=== PATIENT | male | born 1955 | race American Indian/Alaskan Native ===

== ENCOUNTER 2017-10-23 16:44 | Inpatient (IN) | payer MEDICAID ==
--- NOTE | 2017-10-23 17:42 | C.PDOC ---
Time Seen by Provider: 10/23/17 17:11 Chief Complaint (Nursing): Shortness Of Breath Past Medical History Vital Signs: Last Vital Signs Temp 98.8 F 10/23/17 17:00 Pulse 86 10/23/17 17:00 Resp 18 10/23/17 17:15 BP 128/73 10/23/17 17:00 Pulse Ox 100 10/23/17 17:15 - Medical History PMH: Anxiety, HTN, Hypercholesterolemia, End Stage Renal Disease, Chronic Kidney Disease - Social History Hx Alcohol Use: No Hx Substance Use: No ED Course And Treatment ECG: Interpreted By Me ECG Rhythm: Sinus Rhythm Rate From EC O2 Sat by Pulse Oximetry: 100 Pulse Ox Interpretation: Normal Progress - Data Reviewed Data Reviewed: Lab, Diagnostic imaging, EKG, Old records Disposition - Disposition
--- NOTE | 2017-10-23 17:51 | C.PDOC ---
History Of Present Illness POOR HX SOB YESTERDAY, DENIES COUGH, CP FEVER OR TIGHTNESS. ALST DIALYSIS TWO DAYS AGO. EXAM. NON TOXIC NO ACUTE FINDINGS POOR EFFORT Time Seen by Provider: 10/23/17 17:11 Chief Complaint (Nursing): Shortness Of Breath History/Exam Limitations: clinical condition Past Medical History Reviewed: Historical Data, Nursing Documentation, Vital Signs Vital Signs: Last Vital Signs Temp 98.8 F 10/23/17 17:00 Pulse 86 10/23/17 17:00 Resp 18 10/23/17 17:15 BP 128/73 10/23/17 17:00 Pulse Ox 100 10/23/17 18:00 - Medical History PMH: Anxiety, HTN, Hypercholesterolemia, End Stage Renal Disease, Chronic Kidney Disease Family History: States: No Known Family Hx - Social History Hx Alcohol Use: No Hx Substance Use: No Review Of Systems Review Of Systems: ROS cannot be obtained secondary to pt's inabilty to answer questions. Physical Exam - Physical Exam Appears: Non-toxic, No Acute Distress Skin: Warm, Dry, No Rash Head: Normacephalic Eye(s): bilateral: PERRL Neck: Normal ROM Cardiovascular: Rhythm Regular, No Murmur Respiratory: No Accessory Muscle Use (POOR EFFORT) Extremity: No Deformity, No Swelling ED Course And Treatment - Laboratory Results Result Diagrams: 10/23/17 18:00 10/23/17 18:00 O2 Sat by Pulse Oximetry: 100 (RA) Pulse Ox Interpretation: Normal - Radiology CXR: Interpreted by Me, Viewed By Me CXR Interpretation: Yes: No Acute Disease Progress - Re-Evaluation Re-evaluation Note: 10/23/17 18:36 D/W DR BURGOS WILL ADMIT - Data Reviewed Data Reviewed: Lab, Diagnostic imaging, EKG, Old records Disposition Counseled Patient/Family Regarding: Studies Performed, Diagnosis - Disposition Disposition: HOSPITALIZED Disposition Time: 18:37 Condition: STABLE Forms: [facility] (Kinyarwanda) - Clinical Impression Clinical Impression: Dyspnea, ESRD (end stage renal disease) on dialysis - Scribe Statement The provider has reviewed the documentation as recorded by the Scribe (Jonas Vera) All medical record entries made by the Scribe were at my direction and personally dictated by me. I have reviewed the chart and agree that the record accurately reflects my personal performance of the history, physical exam, medical decision making, and the department course for this patient. I have also personally directed, reviewed, and agree with the discharge instructions and disposition. Decision To Admit - Pt Status Changed To: Hospital Disposition Of: Inpatient - Admit Certification Admit to Inpatient:: After my assessment, the patient will require hospitalization for at least two midnights. This is because of the severity of symptoms shown, intensity of services needed, and/or the medical risk in this patient being treated as an outpatient. - InPatient: Physician Admission Certification: I certify that this patient requires 2 or more midnights of care for the following reason:: SEE NOTE - . Bed Request Type: Regular Admitting Physician: Christopher Burgos Patient Diagnosis: Dyspnea, ESRD (end stage renal disease) on dialysis
--- NOTE | 2017-10-23 17:57 | RAD ---
PROCEDURE: CHEST RADIOGRAPH, 1 VIEW HISTORY: SOB COMPARISON: Chest radiograph dated 03/09/2011 FINDINGS: LUNGS: Nodular density in the peripheral right lower lung may represent a nipple shadow. Clear. PLEURA: No pneumothorax or pleural fluid seen. CARDIOVASCULAR: Normal. OSSEOUS STRUCTURES: Unchanged. VISUALIZED UPPER ABDOMEN: Normal. OTHER FINDINGS: Right internal jugular access hemodialysis catheter with tips at the cavoatrial junction. IMPRESSION: No focal consolidation or pleural effusion. Right lower lobe nodular density may represent a nipple shadow.
[2017-10-23 18:03] LABS: BASO # 0.1 K/uL (0.0-0.2); BASO % 0.4 % (0.0-2.0); HEMOGLOBIN 11.5 g/dL (12.0-18.0); LYMPH # 0.9 K/uL (1.0-4.3); LYMPH % 4.9 % (20.0-40.0); MEAN CELL VOLUME 86.4 fL (80.0-94.0); MEAN CORPUSCULAR HEMOGLOBIN 29.8 pg (27.0-31.0); MEAN CORPUSCULAR HGB CONC 34.5 g/dL (33.0-37.0); MEAN PLATELET VOLUME 7.8 fL (7.2-11.7); MONO # 0.8 K/uL (0.0-0.8); MONO % 4.2 % (0.0-10.0); NEUT # 17.3 K/uL (1.8-7.0); NEUT % 90.5 % (50.0-75.0); PLATELET COUNT 323 K/uL (130-400); RBC 3.84 Mil/uL (4.40-5.90); RED CELL DISTRIBUTION WIDTH 13.2 % (11.5-14.5); WHITE BLOOD COUNT 19.1 K/uL (4.8-10.8)
[2017-10-23 18:30] LABS: ALBUMIN 4.1 g/dL (3.5-5.0); CALCIUM 8.5 mg/dl (8.6-10.4); LYMPHOCYTE 6 % (20-40); MONOCYTE 8 % (0-10); NEUTROPHIL 86 % (50-75); PLATELET ESTIMATE NORMAL (NORMAL); TOTAL CELLS COUNTED 100
[2017-10-23] MEDS: (Novolog) Insulin Aspart, Recombinant 100 u/ml 10 ml vial SC SCH (22:19)
[2017-10-24] MEDS: (Novolog) Insulin Aspart, Recombinant 100 u/ml 10 ml vial SC SCH ×3 (08:22→21:45)
[2017-10-24] MEDS: Aspirin 325 mg EC Tablets PO SCH (10:22)
--- NOTE | 2017-10-24 11:33 | CP.PCM.PCO ---
Physician Communication Note - Physician Communication Note Physician Communication Note: Patient refusing to sign dialysis consent. No # for family consent on file.
[2017-10-25] MEDS: (Novolog) Insulin Aspart, Recombinant 100 u/ml 10 ml vial SC SCH ×4 (07:37→21:08)
--- NOTE | 2017-10-25 08:36 | CP.PCM.CON ---
History of Present Illness - History of Present Illness History of Present Illness: Vascular Surgery - Dr. Bardales 62yo M w/ HTN, DM, ESRD on HD () since 4 months ago via a Right Subclavian Permacath, presented to ED yesterday with SOB. Pt states he last received dialysis yesterday in the hospital. He currently states his SOB is improved and he is saturating ~98% on 2L Nasal Cannula. Pt denies any other complaints including Fever/Chills/Chest pain/Abdominal pain. Vascular surgery was consulted for AV Fistula. PMH: HTN, Dm, ESRD on HD / PSH: Right BKA, Left Toe Amp., Right Subclavian V. Permacath Meds as per chart NKDA Review of Systems - Review of Systems All systems: reviewed and no additional remarkable complaints except (as per HPI ) Past Patient History - Past Social History Smoking Status: Smoker Currrent Status Unknown - CARDIAC Hx Hypercholesterolemia: Yes Hx Hypertension: Yes - RENAL Hx Renal Failure: Yes - ENDOCRINE/METABOLIC Hx Diabetes Mellitus Type 1: Yes - MUSCULOSKELETAL/RHEUMATOLOGICAL Hx Falls: No - GASTROINTESTINAL Hx Gastrointestinal Disorders: Yes Hx Gastroesophageal Reflux: Yes - PSYCHIATRIC Hx Anxiety: Yes Hx Substance Use: No - SURGICAL HISTORY Hx Surgeries: Yes Hx Amputation: Yes (Left BKA, Right toe amputations) - ANESTHESIA Hx Anesthesia: Yes Hx Anesthesia Reactions: No Hx Malignant Hyperthermia: No Has any member of the family had a problem w/ anesthesia?: No Meds Allergies/Adverse Reactions: Allergies Allergy/AdvReac Type Severity Reaction Status Date / Time No Known Allergies Allergy Verified 10/23/17 17:14 - Medications Medications: Current Medications Aspirin (Ecotrin) 81 mg PO DAILY [facility] Last Admin: 10/24/17 10:22 Dose: 81 mg Atenolol (Tenormin) 50 mg PO DAILY [facility] Last Admin: 10/24/17 10:20 Dose: 50 mg Clonazepam (Klonopin) 1 mg PO TID PRN PRN Reason: Anxiety Last Admin: 10/24/17 22:17 Dose: 1 mg Clonidine HCl (Catapres) 0.2 mg PO BID [facility] Last Admin: 10/24/17 21:39 Dose: Not Given Clopidogrel Bisulfate (Plavix) 75 mg PO DAILY [facility] Last Admin: 10/24/17 10:20 Dose: 75 mg Docusate Sodium (Colace) 100 mg PO TID [facility] Last Admin: 10/24/17 21:39 Dose: Not Given Famotidine (Pepcid) 20 mg PO DAILY [facility] Last Admin: 10/24/17 10:20 Dose: 20 mg Gabapentin (Neurontin) 400 mg PO TID [facility] Last Admin: 10/24/17 21:45 Dose: Not Given Heparin Sodium (Porcine) (Heparin) 5,000 units SC Q12 [facility] Last Admin: 10/24/17 21:42 Dose: 5,000 units Insulin Aspart (Novolog) 0 unit SC ACHS [facility] PRN Reason: Protocol Last Admin: 10/25/17 07:37 Dose: Not Given Lamotrigine (Lamictal) 25 mg PO DAILY [facility] Last Admin: 10/24/17 10:20 Dose: 25 mg Rosuvastatin Calcium (Crestor) 10 mg PO HS [facility] Last Admin: 10/24/17 21:41 Dose: 10 mg Physical Exam - Constitutional Appears: No Acute Distress - Head Exam Head Exam: ATRAUMATIC, NORMAL INSPECTION, NORMOCEPHALIC - Eye Exam Eye Exam: Normal appearance - Respiratory Exam Respiratory Exam: Wheezes. absent: Respiratory Distress - Extremities Exam Extremities exam: Positive for: normal inspection Additional comments: Right Subclavian v Permacath Left arm with IV access - Neurological Exam Neurological exam: Alert, Oriented x3 - Psychiatric Exam Psychiatric exam: Normal Affect, Normal Mood - Skin Skin Exam: Dry, Intact Results - Vital Signs Recent Vital Signs: Last Vital Signs Temp 98.1 F 10/25/17 08:27 Pulse 86 10/25/17 08:27 Resp 20 10/25/17 08:27 BP 142/84 10/25/17 08:27 Pulse Ox 100 10/25/17 08:27 - Labs Result Diagrams: 10/23/17 18:00 10/23/17 18:00 Labs: Laboratory Results - last 24 hr 10/24/17 10/24/17 10/24/17 11:17 16:26 21:22 POC Glucose (mg/dL) 125 H 147 H 116 H 10/25/17 10/25/17 02:23 07:19 POC Glucose (mg/dL) 118 H 72 Assessment & Plan - Assessment and Plan (Free Text) Assessment: 62 yo M w/ ESRD, admitted for SOB, surgery consulted for AVF -Will order Vein mapping -Left arm precautions - no IV or blood draws on Left arm -Medical Management as per Primary team Will Norbert Bardales
[2017-10-25] MEDS: Aspirin 325 mg EC Tablets PO SCH (10:44)
[2017-10-26] MEDS: (Novolog) Insulin Aspart, Recombinant 100 u/ml 10 ml vial SC SCH ×4 (08:30→21:32)
--- NOTE | 2017-10-26 09:31 | HP ---
HISTORY OF PRESENT ILLNESS: 62-year old male history of nocturia. Chief complaint weakness, fatigue, missed dialysis. The patient came, advised admission. PHYSICAL EXAMINATION: GENERAL: The patient is awake, alert, and oriented. VITAL SIGNS: Temperature 98, pulse 90. HEENT: Within normal limits. CHEST: Symmetrical. HEART: Regular. ABDOMEN: Soft. EXTREMITIES: No edema. IMPRESSION: History of renal failure, rule out sepsis. The patient on bedrest, supportive care. Christopher Polk MD
--- NOTE | 2017-10-26 09:32 | PN ---
DATE: 10/25/2017 The patient on supportive care. Difficulty swallowing. He is now to mechanical. Christopher Polk MD
--- NOTE | 2017-10-26 10:53 | CP.PCM.PN ---
Subjective - Date & Time of Evaluation Date of Evaluation: 10/26/17 Time of Evaluation: 10:45 - Subjective Subjective: 62 y/o male with past medical history of HTN, DM and ESRD on HD T//Thu was admitted to hospital for shortness of breath about 3 days ago. Patient last received dialysis 2 days ago. Pt denied having any CP, cough, F/CCurrently patient denies having any SOB, CP, LE swelling, abd pain, N/V/D/C, F/C. 12 point ROS negative except for the above mentioned PMHx: stated above Sx: Right BKA, Left toe amp, right subclavian vein permacath NKDA Objective - Vital Signs/Intake and Output Vital Signs (last 24 hours): Temp Pulse Resp BP Pulse Ox 98.1 F 80 20 110/61 97 10/26/17 08:17 10/26/17 08:17 10/26/17 08:17 10/26/17 08:17 10/26/17 08:17 Intake and Output: 10/26/17 10/26/17 06:59 18:59 Intake Total 500 Balance 500 - Medications Medications: Current Medications Aspirin (Ecotrin) 81 mg PO DAILY [facility] Last Admin: 10/26/17 09:27 Dose: 81 mg Atenolol (Tenormin) 50 mg PO DAILY [facility] Last Admin: 10/26/17 09:35 Dose: Not Given Clonazepam (Klonopin) 1 mg PO TID PRN PRN Reason: Anxiety Last Admin: 10/24/17 22:17 Dose: 1 mg Clonidine HCl (Catapres) 0.2 mg PO BID [facility] Last Admin: 10/26/17 09:35 Dose: Not Given Clopidogrel Bisulfate (Plavix) 75 mg PO DAILY [facility] Last Admin: 10/26/17 09:27 Dose: 75 mg Docusate Sodium (Colace) 100 mg PO TID [facility] Last Admin: 10/26/17 09:27 Dose: 100 mg Famotidine (Pepcid) 20 mg PO DAILY [facility] Last Admin: 10/26/17 09:26 Dose: 20 mg Gabapentin (Neurontin) 400 mg PO TID [facility] Last Admin: 10/26/17 09:27 Dose: 400 mg Heparin Sodium (Porcine) (Heparin) 5,000 units SC Q12 [facility] Last Admin: 10/26/17 09:27 Dose: 5,000 units Insulin Aspart (Novolog) 0 unit SC ACHS [facility] PRN Reason: Protocol Last Admin: 10/26/17 08:30 Dose: 1 unit Lamotrigine (Lamictal) 25 mg PO DAILY [facility] Last Admin: 10/26/17 09:26 Dose: 25 mg Rosuvastatin Calcium (Crestor) 10 mg PO HS [facility] Last Admin: 10/25/17 21:54 Dose: 10 mg - Labs Labs: 10/23/17 18:00 10/23/17 18:00 - Constitutional Appears: Non-toxic, No Acute Distress - Head Exam Head Exam: ATRAUMATIC - ENT Exam ENT Exam: Mucous Membranes Moist - Respiratory Exam Respiratory Exam: Clear to Ausculation Bilateral. absent: Accessory Muscle Use , Rales, Rhonchi, Wheezes, Respiratory Distress - Cardiovascular Exam Cardiovascular Exam: REGULAR RHYTHM, +S1, +S2. absent: Gallop, Rubs, Murmur - GI/Abdominal Exam GI & Abdominal Exam: Soft, Normal Bowel Sounds. absent: Distended, Firm, Guarding, Rigid, Tenderness, Organomegaly - Extremities Exam Extremities Exam: absent: Pedal Edema, Tenderness Additional comments: right BKA noted - Neurological Exam Neurological Exam: Alert, Awake, Oriented x3 - Psychiatric Exam Psychiatric exam: Normal Affect, Normal Mood - Skin Skin Exam: Dry, Intact, Normal Color, Warm Assessment and Plan - Assessment and Plan (Free Text) Assessment: 62 year old male with ESRD on HD T//Thu, DM, HTN is admitted for shortness of breath. Dyspnea - Currently resolved - Will check ProBNP - Will check echo Leukocytosis - On admission, WBC count is 19 - Will recheck count. - Blood cultures were negative from admission HTN - Continue home medication: Atenolol 50 mg qd, clonopin 0.2 mg po bid - Continue Aspirin and plavix. ( pt may have CAD history seeing as pt is on these medications at home) DM - Accuchecks ACHS - ISS - Will check hgbA1c and lipid panel - Will continue statin: crestor ESRD on HD T//Thu - Nephrology, Dr. Silver is consulted. Recommends vein mapping with vascular surgery - Last dialysis was 2 days ago diabetic neuropathy - Continue gabapentin Prophylaxis - Pepcid - Heparin Case discussed with attending, Dr. Polk. All managements and orders per Dr. Polk
[2017-10-26 11:14] LABS: BASO # 0.1 K/uL (0.0-0.2); BASO % 0.3 % (0.0-2.0); EOS # 0.1 K/uL (0.0-0.7); EOS % 0.6 % (0.0-4.0); HEMOGLOBIN 10.5 g/dL (12.0-18.0); LYMPH # 1.9 K/uL (1.0-4.3); LYMPH % 10.1 % (20.0-40.0); MEAN CELL VOLUME 87.4 fL (80.0-94.0); MEAN CORPUSCULAR HEMOGLOBIN 29.5 pg (27.0-31.0); MEAN CORPUSCULAR HGB CONC 33.8 g/dL (33.0-37.0); MEAN PLATELET VOLUME 8.4 fL (7.2-11.7); MONO # 1.4 K/uL (0.0-0.8); MONO % 7.3 % (0.0-10.0); NEUT # 15.5 K/uL (1.8-7.0); NEUT % 81.7 % (50.0-75.0); RBC 3.55 Mil/uL (4.40-5.90); RED CELL DISTRIBUTION WIDTH 13.4 % (11.5-14.5)
[2017-10-26 11:18] LABS: INR 1.1; PROTHROMBIN TIME 12.9 SECONDS (9.7-12.2)
[2017-10-26 11:35] LABS: ALB/GLOB RATIO 0.9 (1.0-2.1); ALBUMIN 3.5 g/dL (3.5-5.0); CALCIUM 8.5 mg/dl (8.6-10.4)
[2017-10-26] MEDS: Oxycodone/Acetaminophen 5/325 mg Tab PO PRN (14:26)
--- NOTE | 2017-10-26 14:26 | CP.PCM.PN ---
Subjective - Date & Time of Evaluation Date of Evaluation: 10/26/17 Time of Evaluation: 06:50 - Subjective Subjective: Vascular surgery progress note for Dr. Cyril Myrick, PGY-1 Pt S & E at bedside. Pt without complaints overnight. Denies N & V, F & C, ever having vascular access surgery prior. Objective - Vital Signs/Intake and Output Vital Signs (last 24 hours): Temp Pulse Resp BP Pulse Ox 98.1 F 80 20 110/61 97 10/26/17 08:17 10/26/17 08:17 10/26/17 08:17 10/26/17 08:17 10/26/17 08:17 Intake and Output: 10/26/17 10/26/17 06:59 18:59 Intake Total 500 Balance 500 - Medications Medications: Current Medications Aspirin (Ecotrin) 81 mg PO DAILY [facility] Last Admin: 10/26/17 09:27 Dose: 81 mg Atenolol (Tenormin) 50 mg PO DAILY [facility] Last Admin: 10/26/17 09:35 Dose: Not Given Clonazepam (Klonopin) 1 mg PO TID PRN PRN Reason: Anxiety Last Admin: 10/24/17 22:17 Dose: 1 mg Clonidine HCl (Catapres) 0.2 mg PO BID [facility] Last Admin: 10/26/17 09:35 Dose: Not Given Clopidogrel Bisulfate (Plavix) 75 mg PO DAILY [facility] Last Admin: 10/26/17 09:27 Dose: 75 mg Docusate Sodium (Colace) 100 mg PO TID [facility] Last Admin: 10/26/17 09:27 Dose: 100 mg Famotidine (Pepcid) 20 mg PO DAILY [facility] Last Admin: 10/26/17 09:26 Dose: 20 mg Gabapentin (Neurontin) 400 mg PO TID [facility] Last Admin: 10/26/17 09:27 Dose: 400 mg Heparin Sodium (Porcine) (Heparin) 5,000 units SC Q12 [facility] Last Admin: 10/26/17 09:27 Dose: 5,000 units Insulin Aspart (Novolog) 0 unit SC ACHS [facility] PRN Reason: Protocol Last Admin: 10/26/17 12:30 Dose: 1 unit Lamotrigine (Lamictal) 25 mg PO DAILY [facility] Last Admin: 10/26/17 09:26 Dose: 25 mg Oxycodone/Acetaminophen (Percocet 5/325 Mg Tab) 1 tab PO BID PRN PRN Reason: Pain, moderate (4-7) Stop: 10/29/17 13:56 Rosuvastatin Calcium (Crestor) 10 mg PO HS [facility] Last Admin: 10/25/17 21:54 Dose: 10 mg - Labs Labs: 10/26/17 11:04 10/26/17 11:04 PT 12.9 SECONDS (9.7-12.2) H 10/26/17 11:04 INR 1.1 10/26/17 11:04 APTT 26 SECONDS (21-34) 10/26/17 11:04 - Constitutional Appears: Non-toxic, No Acute Distress - Head Exam Head Exam: ATRAUMATIC, NORMAL INSPECTION, NORMOCEPHALIC - Eye Exam Eye Exam: EOMI, Normal appearance - ENT Exam ENT Exam: Mucous Membranes Moist, Normal Exam - Neck Exam Neck Exam: Full ROM, Normal Inspection - Respiratory Exam Respiratory Exam: NORMAL BREATHING PATTERN - Cardiovascular Exam Cardiovascular Exam: REGULAR RHYTHM, +S1, +S2 - GI/Abdominal Exam GI & Abdominal Exam: Soft. absent: Distended, Firm, Guarding, Tenderness - Extremities Exam Extremities Exam: Full ROM, Normal Capillary Refill, Normal Inspection. absent : Pedal Edema, Tenderness - Neurological Exam Neurological Exam: Alert, Awake, CN II-XII Intact, Oriented x3 - Psychiatric Exam Psychiatric exam: Normal Affect, Normal Mood - Skin Skin Exam: Dry, Intact, Normal Color, Warm Assessment and Plan - Assessment and Plan (Free Text) Assessment: 62M w/ESERD requiring HD, consulted for AVF creation Plan: FU Vein mapping L arm precautions Further mgmt as per primary teams Further surgical recommendations pending imaging Will DW attending Elen, PGY-1
--- NOTE | 2017-10-26 18:55 | CP.PCM.PN ---
Subjective - Date & Time of Evaluation Date of Evaluation: 10/26/17 Time of Evaluation: 16:00 - Subjective Subjective: seen on renal f/u on the bed side feels better .. c/o generalized weakness and loss of appetite vascular surgery on the case for avf Objective - Vital Signs/Intake and Output Vital Signs (last 24 hours): Temp Pulse Resp BP Pulse Ox 99 F 78 20 93/48 L 99 10/26/17 15:00 10/26/17 15:00 10/26/17 15:00 10/26/17 15:00 10/26/17 15:00 Intake and Output: 10/26/17 10/26/17 06:59 18:59 Intake Total 500 360 Balance 500 360 - Medications Medications: Current Medications Aspirin (Ecotrin) 81 mg PO DAILY [facility] Last Admin: 10/26/17 09:27 Dose: 81 mg Atenolol (Tenormin) 50 mg PO DAILY [facility] Last Admin: 10/26/17 09:35 Dose: Not Given Clonazepam (Klonopin) 1 mg PO TID PRN PRN Reason: Anxiety Last Admin: 10/24/17 22:17 Dose: 1 mg Clopidogrel Bisulfate (Plavix) 75 mg PO DAILY [facility] Last Admin: 10/26/17 09:27 Dose: 75 mg Docusate Sodium (Colace) 100 mg PO TID [facility] Last Admin: 10/26/17 17:48 Dose: 100 mg Ergocalciferol (Drisdol 50,000 Intl Units Cap) 1 cap PO Q7D [facility] Famotidine (Pepcid) 20 mg PO DAILY [facility] Last Admin: 10/26/17 09:26 Dose: 20 mg Heparin Sodium (Porcine) (Heparin) 5,000 units SC Q12 [facility] Last Admin: 10/26/17 09:27 Dose: 5,000 units Insulin Aspart (Novolog) 0 unit SC ACHS [facility] PRN Reason: Protocol Last Admin: 10/26/17 17:14 Dose: Not Given Lamotrigine (Lamictal) 25 mg PO DAILY [facility] Last Admin: 10/26/17 09:26 Dose: 25 mg Oxycodone/Acetaminophen (Percocet 5/325 Mg Tab) 1 tab PO BID PRN PRN Reason: Pain, moderate (4-7) Stop: 10/29/17 13:56 Last Admin: 10/26/17 14:26 Dose: 1 tab Rosuvastatin Calcium (Crestor) 10 mg PO HS [facility] Last Admin: 10/25/17 21:54 Dose: 10 mg Vitamin B Complex/Vit C/Folic Acid (Nephro-[place]) 1 tab PO 0800 [facility] - Labs Labs: 10/26/17 11:04 10/26/17 11:04 PT 12.9 SECONDS (9.7-12.2) H 10/26/17 11:04 INR 1.1 10/26/17 11:04 APTT 26 SECONDS (21-34) 10/26/17 11:04 Assessment and Plan - Assessment and Plan (Free Text) Assessment: esrd on hd m w f .. to be c/o anemia of ckd .. h/h stable mmp p : add chana london add vit D c/o current care
[2017-10-26] MEDS ORDERED: Ergocalciferol 50,000 Intl Units Cap PO SCH (19:00)
--- NOTE | 2017-10-26 20:39 | CARD ---
APPROVED REPORT EKG Measurement Heart [id number] <Conclusion> Normal sinus rhythm Cannot rule out Anterior infarct, age undetermined Abnormal ECG
[2017-10-27 06:36] LABS: BASO # 0.1 K/uL (0.0-0.2); BASO % 0.6 % (0.0-2.0); EOS # 0.2 K/uL (0.0-0.7); EOS % 1.6 % (0.0-4.0); HEMOGLOBIN 11.9 g/dL (12.0-18.0); LYMPH # 2.1 K/uL (1.0-4.3); LYMPH % 14.5 % (20.0-40.0); MEAN CELL VOLUME 87.9 fL (80.0-94.0); MEAN CORPUSCULAR HEMOGLOBIN 29.7 pg (27.0-31.0); MEAN CORPUSCULAR HGB CONC 33.8 g/dL (33.0-37.0); MEAN PLATELET VOLUME 8.3 fL (7.2-11.7); MONO # 1.4 K/uL (0.0-0.8); MONO % 9.5 % (0.0-10.0); NEUT # 10.8 K/uL (1.8-7.0); NEUT % 73.8 % (50.0-75.0); NRBC % 0.1 % (0.0-2.0); RED CELL DISTRIBUTION WIDTH 13.5 % (11.5-14.5); WHITE BLOOD COUNT 14.7 K/uL (4.8-10.8)
[2017-10-27] MEDS: (Novolog) Insulin Aspart, Recombinant 100 u/ml 10 ml vial SC SCH ×4 (07:30→22:49)
--- NOTE | 2017-10-27 07:33 | CP.PCM.PN ---
Subjective - Date & Time of Evaluation Date of Evaluation: 10/27/17 Time of Evaluation: 10:55 - Subjective Subjective: PGY 2 Med Note- Dr. Polk's service Pt seen and examined in no immediate acute distress. Patient states that he feels okay at the moment. He is tolerating a breakfast without complaints. Patient denies chest pain, headaches, nausea, vomiting, diarrhea, at this time. Objective - Vital Signs/Intake and Output Vital Signs (last 24 hours): Temp Pulse Resp BP Pulse Ox 98.2 F 74 20 128/67 97 10/27/17 00:00 10/27/17 06:00 10/27/17 06:00 10/27/17 06:00 10/27/17 06:00 Intake and Output: 10/27/17 10/27/17 06:59 18:59 Intake Total 480 Balance 480 - Medications Medications: Current Medications Aspirin (Ecotrin) 81 mg PO DAILY [facility] Last Admin: 10/26/17 09:27 Dose: 81 mg Atenolol (Tenormin) 50 mg PO DAILY [facility] Last Admin: 10/26/17 09:35 Dose: Not Given Clonazepam (Klonopin) 1 mg PO TID PRN PRN Reason: Anxiety Last Admin: 10/24/17 22:17 Dose: 1 mg Clopidogrel Bisulfate (Plavix) 75 mg PO DAILY [facility] Last Admin: 10/26/17 09:27 Dose: 75 mg Docusate Sodium (Colace) 100 mg PO TID [facility] Last Admin: 10/26/17 17:48 Dose: 100 mg Ergocalciferol (Drisdol 50,000 Intl Units Cap) 1 cap PO Q7D [facility] Last Admin: 10/26/17 19:54 Dose: 1 cap Famotidine (Pepcid) 20 mg PO DAILY [facility] Last Admin: 10/26/17 09:26 Dose: 20 mg Insulin Aspart (Novolog) 0 unit SC ACHS [facility] PRN Reason: Protocol Last Admin: 10/26/17 21:32 Dose: Not Given Lamotrigine (Lamictal) 25 mg PO DAILY [facility] Last Admin: 10/26/17 09:26 Dose: 25 mg Oxycodone/Acetaminophen (Percocet 5/325 Mg Tab) 1 tab PO BID PRN PRN Reason: Pain, moderate (4-7) Stop: 10/29/17 13:56 Last Admin: 10/26/17 14:26 Dose: 1 tab Rosuvastatin Calcium (Crestor) 10 mg PO HS [facility] Last Admin: 10/26/17 21:50 Dose: 10 mg Vitamin B Complex/Vit C/Folic Acid (Nephro-[place]) 1 tab PO 0800 [facility] - Labs Labs: 10/27/17 06:29 10/26/17 11:04 PT 12.9 SECONDS (9.7-12.2) H 10/26/17 11:04 INR 1.1 10/26/17 11:04 APTT 26 SECONDS (21-34) 10/26/17 11:04 - Constitutional Appears: Non-toxic, No Acute Distress - Head Exam Head Exam: ATRAUMATIC - Eye Exam Eye Exam: EOMI - ENT Exam ENT Exam: Mucous Membranes Moist - Neck Exam Neck Exam: Full ROM - Respiratory Exam Respiratory Exam: NORMAL BREATHING PATTERN - Cardiovascular Exam Cardiovascular Exam: +S1, +S2 - GI/Abdominal Exam GI & Abdominal Exam: Soft, Normal Bowel Sounds - Extremities Exam Extremities Exam: Normal Capillary Refill Additional comments: BKA noted, toe amputation noted as well on other lower extremity - Back Exam Back Exam: Full ROM - Neurological Exam Neurological Exam: Alert, Awake, Oriented x3 - Psychiatric Exam Psychiatric exam: Normal Affect, Normal Mood - Skin Skin Exam: Dry, Normal Color, Warm Assessment and Plan - Assessment and Plan (Free Text) Assessment: ESRD on HD T//Thu - Nephrology, Dr. Silver is consulted. Recommends vein mapping with vascular surgery - Due for dialysis today - Surg team to perform vein mapping. Considerations for AVF. F/U recommendations. - EKG - NSR at 95 bpm. Cannot rule out anterior infarct. Considerations for Cardio referral in anticipation for surgery. - CXR- no apparent consolidation or effusions noted. Refer to complete report. - F/U labs Dyspnea - Currently resolved - ProBNP 6330 - F/U echo Leukocytosis - Afebrile - On admission, WBC count is 19. Trending down. - Blood cultures were negative from admission - Monitor Anemia -Likely of chronic disease -Etiology likely secondarily due to renal disease -Hgb stable HTN - Continue home medication: Atenolol 50 mg qd, clonopin 0.2 mg po bid - Continue Aspirin and plavix. - Questionable History of CAD. DM - Accuchecks ACHS - ISS - HgbA1c 5.7 - Will continue statin: crestor Hypertriglyceridemia - May be elevated if patient was non-fasting. Labs were obtained at 11AM on the day of draw - Low HDL - Monitor Diabetic Neuropathy - Continue gabapentin Prophylaxis - Pepcid - Heparin Case discussed with attending, Dr. Polk. All managements and orders per Dr. Polk
[2017-10-27] MEDS: Multivitamin Vitamin B Complex (Nephro-Vite) Tab PO SCH (08:00)
[2017-10-27 09:31] LABS: ALB/GLOB RATIO 0.9 (1.0-2.1); ALBUMIN 3.6 g/dL (3.5-5.0); CALCIUM 8.4 mg/dl (8.6-10.4)
--- NOTE | 2017-10-27 09:41 | CP.PCM.PN ---
Subjective - Date & Time of Evaluation Date of Evaluation: 10/27/17 Time of Evaluation: 09:38 - Subjective Subjective: [facility] Surgery - [place]af[place] Pt S&E. MARCELLOEO. Pt denies any complaints. He feels his breathing is improving. He remains in bed. No other complaints. Objective - Vital Signs/Intake and Output Vital Signs (last 24 hours): Temp Pulse Resp BP Pulse Ox 98.2 F 69 20 113/62 98 10/27/17 07:56 10/27/17 07:56 10/27/17 07:56 10/27/17 07:56 10/27/17 07:56 Intake and Output: 10/27/17 10/27/17 06:59 18:59 Intake Total 480 Balance 480 - Medications Medications: Current Medications Aspirin (Ecotrin) 81 mg PO DAILY [facility] Last Admin: 10/26/17 09:27 Dose: 81 mg Atenolol (Tenormin) 50 mg PO DAILY [facility] Last Admin: 10/26/17 09:35 Dose: Not Given Clonazepam (Klonopin) 1 mg PO TID PRN PRN Reason: Anxiety Last Admin: 10/24/17 22:17 Dose: 1 mg Clopidogrel Bisulfate (Plavix) 75 mg PO DAILY [facility] Last Admin: 10/26/17 09:27 Dose: 75 mg Docusate Sodium (Colace) 100 mg PO TID [facility] Last Admin: 10/26/17 17:48 Dose: 100 mg Ergocalciferol (Drisdol 50,000 Intl Units Cap) 1 cap PO Q7D [facility] Last Admin: 10/26/17 19:54 Dose: 1 cap Famotidine (Pepcid) 20 mg PO DAILY [facility] Last Admin: 10/26/17 09:26 Dose: 20 mg Insulin Aspart (Novolog) 0 unit SC ACHS [facility] PRN Reason: Protocol Last Admin: 10/26/17 21:32 Dose: Not Given Lamotrigine (Lamictal) 25 mg PO DAILY [facility] Last Admin: 10/26/17 09:26 Dose: 25 mg Oxycodone/Acetaminophen (Percocet 5/325 Mg Tab) 1 tab PO BID PRN PRN Reason: Pain, moderate (4-7) Stop: 10/29/17 13:56 Last Admin: 10/26/17 14:26 Dose: 1 tab Rosuvastatin Calcium (Crestor) 10 mg PO HS [facility] Last Admin: 10/26/17 21:50 Dose: 10 mg Vitamin B Complex/Vit C/Folic Acid (Nephro-Ramy) 1 tab PO 0800 [facility] - Labs Labs: 10/27/17 06:29 10/27/17 06:29 PT 12.9 SECONDS (9.7-12.2) H 10/26/17 11:04 INR 1.1 10/26/17 11:04 APTT 26 SECONDS (21-34) 10/26/17 11:04 - Constitutional Appears: No Acute Distress - Head Exam Head Exam: ATRAUMATIC, NORMAL INSPECTION, NORMOCEPHALIC - Respiratory Exam Respiratory Exam: Wheezes - Extremities Exam Extremities Exam: Normal Inspection - Neurological Exam Neurological Exam: Alert, Oriented x3 - Psychiatric Exam Psychiatric exam: Normal Affect, Normal Mood - Skin Skin Exam: Dry, Intact Assessment and Plan - Assessment and Plan (Free Text) Assessment: 62M w/ ESRD requiring HD, consulted for AVF creation Plan: LEFT ARM PRECAUTIONS - NO IV OR BLOOD DRAWS FROM LEFT HAND Will review vein mapping Poss. AVF later this week - will need medical/pulm clearance please DW Dr. Bardales
[2017-10-27] MEDS: Oxycodone/Acetaminophen 5/325 mg Tab PO PRN (09:51)
--- NOTE | 2017-10-27 11:42 | VASCLAB ---
PROCEDURE: Left Upper Extremity Venous Duplex Exam HISTORY: avf PRIORS: None. TECHNIQUE: Left upper extremity, internal jugular, subclavian, axillary, brachial, ulnar, radial, basilic and upper cephalic veins were evaluated. Flow was assessed with color Doppler, compressibility, assessment of phasic flow and augmentation response. Report prepared by BROWN Carlson, RVT FINDINGS: LEFT: 1. Internal Jugular Vein: Compressibility - Fully compressible: Thrombus - None : Flow - Phasic 2. Subclavian Vein:Compressibility - Fully compressible: Thrombus - None : Flow - Phasic 3. Axillary Vein: Compressibility - Fully compressible: Thrombus - None 4. Brachial Vein: Compressibility - Fully compressible: Thrombus - None 5. Ulnar Vein:Compressibility - Fully compressible: Thrombus - None 6. Radial Vein:Compressibility - Fully compressible: Thrombus - None 7. Cephalic Vein: Compressibility - Fully compressible: thrombus - None 7.1. Upper Arm: Proximal Diameter: 0.16cm. Mid Diameter: 0.14cm. Distal Diameter: 0.17cm. Antecubital Fossa Diameter: 0.22cm 7.2. Forearm: Proximal Diameter: 0.18cm. Mid Diameter:0.12cm. Distal Diameter: 0.11cm 8. Basilic Vein:Compressibility - Fully compressible: thrombus - None 8.1. Upper Arm:Proximal Diameter: cm. Mid Diameter: 0.23cm. Distal Diameter: 0.19cm. 8.2. Forearm: Proximal Diameter: 0.20cm. Mid Diameter:0.12cm. Distal Diameter: 0.11cm. OTHER FINDINGS: None. IMPRESSION: The diameter measurements of the left cephalic vein is measured between 0.11 cm and 0.22 cm and basilic vein is measured between 0.11cm and 0.23cm.
--- NOTE | 2017-10-27 13:40 | CARD ---
APPROVED REPORT EXAM: Two-dimensional and M-mode echocardiogram with Doppler and color Doppler. Other Information Quality : GoodRhythm : INDICATION Dyspnea DIALYSIS RISK FACTORS Hypertension Hyperlipidemia 2D DIMENSIONS IVSd1.5 (0.7-1.1cm)LVDd3.6 (3.9-5.9cm) PWd1.3 (0.7-1.1cm)LVDs2.2 (2.5-4.0cm) FS (%) 39.5 %LVEF (%)71.0 (>50%) M-Mode DIMENSIONS RVDd2.20 (2.1-3.2cm)Left Atrium (MM)4.10 (2.5-4.0cm) IVSd1.52 (0.7-1.1cm)Aortic Root2.85 (2.2-3.7cm) LVDd4.12 (4.0-5.6cm)Aortic Cusp Exc.1.53 (1.5-2.0cm) PWd1.42 (0.7-1.1cm)FS (%) 39 % LVDs2.50 (2.0-3.8cm)LVEF (%)70 (>50%) Mitral Valve MV E Kjobybjy32.2cm/sMV A Wltxmpok30.3cm/sE/A ratio0.7 TDI E/Lateral E'0.0E/Medial E'0.0 LEFT VENTRICLE The left ventricle is normal size. There is mild to moderate concentric left ventricular hypertrophy. The left ventricular function is normal. The left ventricular ejection fraction is within the normal range. No regional wall motion abnormalities noted. Transmitral Doppler flow pattern is Grade I-abnormal relaxation pattern. No left ventricle thrombus noted on this study. There is no ventricular septal defect visualized. There is no left ventricular aneurysm. There is no mass noted in the left ventricle. RIGHT VENTRICLE The right ventricle is normal size. There is normal right ventricular wall thickness. The right ventricular systolic function is normal. ATRIA The left atrium size is normal. The right atrium size is normal. The interatrial septum is intact with no evidence for an atrial septal defect. AORTIC VALVE The aortic valve is normal in structure and function. No aortic regurgitation is present. There is no aortic valvular stenosis. There is no aortic valvular vegetation. MITRAL VALVE The mitral valve is normal in structure and function. There is no evidence of mitral valve prolapse. There is no mitral valve stenosis. Mitral regurgitation is mild. TRICUSPID VALVE The tricuspid valve is normal in structure and function. There is mild tricuspid regurgitation. Right ventricular systolic pressure is estimated at less than 30 mmHg. There is no tricuspid valve prolapse or vegetation. There is no tricuspid valve stenosis. PULMONIC VALVE The pulmonary valve is normal in structure and function. There is no pulmonic valvular regurgitation. There is no pulmonic valvular stenosis. GREAT VESSELS The aortic root is normal in size. The ascending aorta is normal in size. The pulmonary artery is normal. The IVC is normal in size and collapses >50% with inspiration. PERICARDIAL EFFUSION The pericardium appears normal. There is no pleural effusion. <Conclusion> The left ventricular function is normal. The left ventricular ejection fraction is within the normal range. No regional wall motion abnormalities noted. There is mild to moderate concentric left ventricular hypertrophy.
--- NOTE | 2017-10-27 20:59 | CP.PCM.PN ---
Subjective - Date & Time of Evaluation Date of Evaluation: 10/27/17 Time of Evaluation: 14:00 - Subjective Subjective: SEEN ON RENAL F/U SEEN ON HD C/O LBP AND HOARSNESS Objective - Vital Signs/Intake and Output Vital Signs (last 24 hours): Temp Pulse Resp BP Pulse Ox 97.3 F L 74 18 108/57 L 95 10/27/17 17:00 10/27/17 17:00 10/27/17 17:00 10/27/17 17:00 10/27/17 17:00 - Medications Medications: Current Medications Aspirin (Ecotrin) 81 mg PO DAILY [facility] Last Admin: 10/27/17 09:53 Dose: 81 mg Atenolol (Tenormin) 50 mg PO DAILY [facility] Last Admin: 10/27/17 09:53 Dose: 50 mg Clonazepam (Klonopin) 1 mg PO TID PRN PRN Reason: Anxiety Last Admin: 10/27/17 09:53 Dose: 1 mg Clopidogrel Bisulfate (Plavix) 75 mg PO DAILY [facility] Last Admin: 10/27/17 09:54 Dose: 75 mg Docusate Sodium (Colace) 100 mg PO TID [facility] Last Admin: 10/27/17 14:30 Dose: 100 mg Ergocalciferol (Drisdol 50,000 Intl Units Cap) 1 cap PO Q7D [facility] Last Admin: 10/26/17 19:54 Dose: 1 cap Famotidine (Pepcid) 20 mg PO DAILY [facility] Last Admin: 10/27/17 09:53 Dose: 20 mg Insulin Aspart (Novolog) 0 unit SC ACHS [facility] PRN Reason: Protocol Last Admin: 10/27/17 11:30 Dose: Not Given Lamotrigine (Lamictal) 25 mg PO DAILY [facility] Last Admin: 10/27/17 09:54 Dose: 25 mg Oxycodone/Acetaminophen (Percocet 5/325 Mg Tab) 1 tab PO BID PRN PRN Reason: Pain, moderate (4-7) Stop: 10/29/17 13:56 Last Admin: 10/27/17 09:51 Dose: 1 tab Rosuvastatin Calcium (Crestor) 10 mg PO HS [facility] Last Admin: 10/26/17 21:50 Dose: 10 mg Vitamin B Complex/Vit C/Folic Acid (Nephro-Ramy) 1 tab PO 0800 [facility] Last Admin: 10/27/17 08:00 Dose: 1 tab - Labs Labs: 10/27/17 06:29 10/27/17 06:29 PT 12.9 SECONDS (9.7-12.2) H 10/26/17 11:04 INR 1.1 10/26/17 11:04 APTT 26 SECONDS (21-34) 10/26/17 11:04 Assessment and Plan - Assessment and Plan (Free Text) Assessment: ESRD ON HD TTS .. TO BE C/O ANEMIA OF CKD .. H/H STABLE MMP P : C/O HD C/O PRESENT MEDS NEEDS AVF SAUL
--- NOTE | 2017-10-27 23:23 | CP.PCM.CON ---
History of Present Illness - History of Present Illness History of Present Illness: 62 Male with hx of DM, HTN, Hyperlipidemia scheduled for pre op cardiac risk assessment Due to mutliple cardiac risk factors and no recent cardiac work up Scheduled for stress test and ECHO Past Patient History - Past Social History Smoking Status: Smoker Currrent Status Unknown - CARDIAC Hx Hypercholesterolemia: Yes Hx Hypertension: Yes - RENAL Hx Renal Failure: Yes - ENDOCRINE/METABOLIC Hx Diabetes Mellitus Type 1: Yes - MUSCULOSKELETAL/RHEUMATOLOGICAL Hx Falls: No - GASTROINTESTINAL Hx Gastrointestinal Disorders: Yes Hx Gastroesophageal Reflux: Yes - PSYCHIATRIC Hx Anxiety: Yes Hx Substance Use: No - SURGICAL HISTORY Hx Surgeries: Yes Hx Amputation: Yes (Left BKA, Right toe amputations) - ANESTHESIA Hx Anesthesia: Yes Hx Anesthesia Reactions: No Hx Malignant Hyperthermia: No Has any member of the family had a problem w/ anesthesia?: No Meds Allergies/Adverse Reactions: Allergies Allergy/AdvReac Type Severity Reaction Status Date / Time No Known Allergies Allergy Verified 10/23/17 17:14 - Medications Medications: Current Medications Aspirin (Ecotrin) 81 mg PO DAILY [facility] Last Admin: 10/27/17 09:53 Dose: 81 mg Atenolol (Tenormin) 50 mg PO DAILY [facility] Last Admin: 10/27/17 09:53 Dose: 50 mg Clonazepam (Klonopin) 1 mg PO TID PRN PRN Reason: Anxiety Last Admin: 10/27/17 09:53 Dose: 1 mg Clopidogrel Bisulfate (Plavix) 75 mg PO DAILY [facility] Last Admin: 10/27/17 09:54 Dose: 75 mg Docusate Sodium (Colace) 100 mg PO TID [facility] Last Admin: 10/27/17 18:00 Dose: 100 mg Ergocalciferol (Drisdol 50,000 Intl Units Cap) 1 cap PO Q7D [facility] Last Admin: 10/26/17 19:54 Dose: 1 cap Famotidine (Pepcid) 20 mg PO DAILY [facility] Last Admin: 10/27/17 09:53 Dose: 20 mg Insulin Aspart (Novolog) 0 unit SC ACHS [facility] PRN Reason: Protocol Last Admin: 10/27/17 22:49 Dose: Not Given Lamotrigine (Lamictal) 25 mg PO DAILY [facility] Last Admin: 10/27/17 09:54 Dose: 25 mg Oxycodone/Acetaminophen (Percocet 5/325 Mg Tab) 1 tab PO BID PRN PRN Reason: Pain, moderate (4-7) Stop: 10/29/17 13:56 Last Admin: 10/27/17 09:51 Dose: 1 tab Rosuvastatin Calcium (Crestor) 10 mg PO HS [facility] Last Admin: 10/27/17 22:47 Dose: 10 mg Vitamin B Complex/Vit C/Folic Acid (Nephro-Ramy) 1 tab PO 0800 [facility] Last Admin: 10/27/17 08:00 Dose: 1 tab Results - Vital Signs Recent Vital Signs: Last Vital Signs Temp 97.3 F L 10/27/17 17:00 Pulse 74 10/27/17 17:00 Resp 18 10/27/17 17:00 BP 108/57 L 10/27/17 17:00 Pulse Ox 95 10/27/17 17:00 - Labs Result Diagrams: 10/27/17 06:29 10/27/17 06:29 Labs: Laboratory Results - last 24 hr 10/27/17 10/27/17 10/27/17 02:03 02:05 06:29 WBC 14.7 H RBC 4.00 L Hgb 11.9 L Hct 35.1 MCV 87.9 MCH 29.7 MCHC 33.8 RDW 13.5 Plt Count 265 MPV 8.3 Neut % (Auto) 73.8 Lymph % (Auto) 14.5 L Stewart % (Auto) 9.5 Eos % (Auto) 1.6 Baso % (Auto) 0.6 Neut # (Auto) 10.8 H Lymph # (Auto) 2.1 Stewart # (Auto) 1.4 H Eos # (Auto) 0.2 Baso # (Auto) 0.1 Sodium Potassium Chloride Carbon Dioxide Anion Gap BUN Creatinine Est GFR ( Amer) Est GFR (Non-Af Amer) POC Glucose (mg/dL) 56 L 123 H Random Glucose Calcium Total Bilirubin AST ALT Alkaline Phosphatase Total Protein Albumin Globulin Albumin/Globulin Ratio 10/27/17 10/27/17 10/27/17 06:29 07:05 11:18 WBC RBC Hgb Hct MCV MCH MCHC RDW Plt Count MPV Neut % (Auto) Lymph % (Auto) Stewart % (Auto) Eos % (Auto) Baso % (Auto) Neut # (Auto) Lymph # (Auto) Stewart # (Auto) Eos # (Auto) Baso # (Auto) Sodium 140 Potassium 4.4 Chloride 92 L Carbon Dioxide 25 Anion Gap 27 H BUN 78 H Creatinine 10.0 H* Est GFR ( Amer) 6 Est GFR (Non-Af Amer) 5 POC Glucose (mg/dL) 116 H 183 H Random Glucose 129 H Calcium 8.4 L Total Bilirubin 0.7 AST 23 ALT 42 Alkaline Phosphatase 115 Total Protein 7.6 Albumin 3.6 Globulin 4.0 H Albumin/Globulin Ratio 0.9 L 10/27/17 10/27/17 10/27/17 16:30 18:07 21:17 WBC RBC Hgb Hct MCV MCH MCHC RDW Plt Count MPV Neut % (Auto) Lymph % (Auto) Stewart % (Auto) Eos % (Auto) Baso % (Auto) Neut # (Auto) Lymph # (Auto) Stewart # (Auto) Eos # (Auto) Baso # (Auto) Sodium Potassium Chloride Carbon Dioxide Anion Gap BUN Creatinine Est GFR ( Amer) Est GFR (Non-Af Amer) POC Glucose (mg/dL) 97 136 H 108 Random Glucose Calcium Total Bilirubin AST ALT Alkaline Phosphatase Total Protein Albumin Globulin Albumin/Globulin Ratio
[2017-10-28 01:03] VITALS: RESP 20
[2017-10-28 06:41] LABS: BASO # 0.1 K/uL (0.0-0.2); BASO % 0.8 % (0.0-2.0); EOS # 0.3 K/uL (0.0-0.7); EOS % 1.9 % (0.0-4.0); HEMOGLOBIN 11.1 g/dL (12.0-18.0); LYMPH % 11.8 % (20.0-40.0); MEAN CELL VOLUME 87.1 fL (80.0-94.0); MEAN CORPUSCULAR HEMOGLOBIN 29.5 pg (27.0-31.0); MEAN CORPUSCULAR HGB CONC 33.9 g/dL (33.0-37.0); MEAN PLATELET VOLUME 8.4 fL (7.2-11.7); MONO # 1.5 K/uL (0.0-0.8); MONO % 9.3 % (0.0-10.0); NEUT # 12.6 K/uL (1.8-7.0); NEUT % 76.2 % (50.0-75.0); RBC 3.75 Mil/uL (4.40-5.90); RED CELL DISTRIBUTION WIDTH 13.4 % (11.5-14.5); WHITE BLOOD COUNT 16.5 K/uL (4.8-10.8)
[2017-10-28 07:02] LABS: INR 1.1; PROTHROMBIN TIME 12.7 SECONDS (9.7-12.2)
[2017-10-28 07:25] LABS: ALBUMIN 3.7 g/dL (3.5-5.0); CALCIUM 8.5 mg/dl (8.6-10.4)
--- NOTE | 2017-10-28 07:29 | CP.PCM.PN ---
Subjective - Date & Time of Evaluation Date of Evaluation: 10/28/17 Time of Evaluation: 07:00 - Subjective Subjective: PGY 2 Med Note- Dr. Cole's service Patient was seen and examined at bedside this morning. Patient denies chest pain , headaches, nausea, vomiting, diarrhea, at this time. He was refusing the stress test earlier this morning but then agreed to have it done. Objective - Vital Signs/Intake and Output Vital Signs (last 24 hours): Temp Pulse Resp BP Pulse Ox 97.9 F 78 20 117/61 99 10/28/17 00:00 10/28/17 00:00 10/28/17 00:00 10/28/17 00:00 10/28/17 00:00 Intake and Output: 10/28/17 10/28/17 06:59 18:59 Intake Total 200 Balance 200 - Medications Medications: Current Medications Aspirin (Ecotrin) 81 mg PO DAILY [facility] Last Admin: 10/27/17 09:53 Dose: 81 mg Atenolol (Tenormin) 50 mg PO DAILY [facility] Last Admin: 10/27/17 09:53 Dose: 50 mg Clonazepam (Klonopin) 1 mg PO TID PRN PRN Reason: Anxiety Last Admin: 10/27/17 09:53 Dose: 1 mg Clopidogrel Bisulfate (Plavix) 75 mg PO DAILY [facility] Last Admin: 10/27/17 09:54 Dose: 75 mg Docusate Sodium (Colace) 100 mg PO TID [facility] Last Admin: 10/27/17 18:00 Dose: 100 mg Ergocalciferol (Drisdol 50,000 Intl Units Cap) 1 cap PO Q7D [facility] Last Admin: 10/26/17 19:54 Dose: 1 cap Famotidine (Pepcid) 20 mg PO DAILY [facility] Last Admin: 10/27/17 09:53 Dose: 20 mg Insulin Aspart (Novolog) 0 unit SC ACHS [facility] PRN Reason: Protocol Last Admin: 10/27/17 22:49 Dose: Not Given Lamotrigine (Lamictal) 25 mg PO DAILY [facility] Last Admin: 10/27/17 09:54 Dose: 25 mg Oxycodone/Acetaminophen (Percocet 5/325 Mg Tab) 1 tab PO BID PRN PRN Reason: Pain, moderate (4-7) Stop: 10/29/17 13:56 Last Admin: 10/27/17 09:51 Dose: 1 tab Rosuvastatin Calcium (Crestor) 10 mg PO HS [facility] Last Admin: 10/27/17 22:47 Dose: 10 mg Vitamin B Complex/Vit C/Folic Acid (Nephro-Ramy) 1 tab PO 0800 [facility] Last Admin: 10/27/17 08:00 Dose: 1 tab - Labs Labs: 10/28/17 06:28 10/27/17 06:29 PT 12.7 SECONDS (9.7-12.2) H 10/28/17 06:28 INR 1.1 10/28/17 06:28 APTT 27 SECONDS (21-34) 10/28/17 06:28 - Constitutional Appears: Non-toxic, No Acute Distress - Head Exam Head Exam: ATRAUMATIC, NORMAL INSPECTION - Eye Exam Eye Exam: EOMI - ENT Exam ENT Exam: Mucous Membranes Moist - Respiratory Exam Respiratory Exam: Clear to Ausculation Bilateral, NORMAL BREATHING PATTERN. absent: Respiratory Distress - Cardiovascular Exam Cardiovascular Exam: REGULAR RHYTHM, +S1, +S2 - GI/Abdominal Exam GI & Abdominal Exam: Soft, Normal Bowel Sounds. absent: Distended, Firm, Guarding, Tenderness - Extremities Exam Additional comments: BKA noted, toe amputation noted as well on other lower extremity - Back Exam Back Exam: NORMAL INSPECTION - Neurological Exam Neurological Exam: Alert, Awake, Oriented x3 - Psychiatric Exam Psychiatric exam: Normal Affect, Normal Mood Assessment and Plan - Assessment and Plan (Free Text) Assessment: ESRD on HD T/Th/Sat - Nephrology, Dr. Silver is consulted. Recommends vein mapping with vascular surgery - Surg team to perform vein mapping - Needs AVF placement - Dr. Bardales consulted help appreciated - Cleared for surgery from Dr. Cole from pulm perspective - For cardiology clearance will be stress test and echo to be reviewed - f/u with Dr. Herrera - F/u stress test results Dyspnea - Currently resolved - ProBNP 6330 - F/U echo - EKG - NSR at 95 bpm. Cannot rule out anterior infarct. - CXR- no apparent consolidation or effusions noted. Refer to complete report. Leukocytosis - Afebrile - On admission, WBC count is 19. Trending down. - Blood cultures were negative from admission - Monitor Anemia -Likely of chronic disease -Etiology likely secondarily due to renal disease -Hgb stable HTN - Continue home medication: Atenolol 50 mg qd, clonopin 0.2 mg po bid - Continue Aspirin and plavix. - Questionable History of CAD. DM - Accuchecks ACHS - ISS - HgbA1c 5.7 - Will continue statin: crestor Hypertriglyceridemia - May be elevated if patient was non-fasting. Labs were obtained at 11AM on the day of draw - Low HDL - Monitor Diabetic Neuropathy - Continue gabapentin Prophylaxis - Pepcid - Heparin Case discussed with attending, Dr. Cole. All managements and orders per Dr. Cole
[2017-10-28] MEDS: (Novolog) Insulin Aspart, Recombinant 100 u/ml 10 ml vial SC SCH ×3 (07:44→17:34)
[2017-10-28] MEDS: Multivitamin Vitamin B Complex (Nephro-Vite) Tab PO SCH (08:07)
--- NOTE | 2017-10-28 09:09 | VASCLAB ---
PROCEDURE: Lower Extremity Venous Duplex Exam. HISTORY: LE swelling PRIORS: None. TECHNIQUE: Bilateral common femoral, femoral, popliteal and posterior tibial, peroneal and great saphenous veins were evaluated. Flow was assessed with color Doppler, compressibility, assessment of phasic flow and augmentation response. Report prepared by BROWN Carlson, RVT FINDINGS: RIGHT: 1. Common Femoral Vein: 1.1. Compressibility - Fully compressible: Thrombus - None : Flow - Phasic: Augmentation -Normal: Reflux - None. 2. Femoral Vein: 2.1. Compressibility - Fully compressible: Thrombus - None : Flow - Phasic: Augmentation -Normal: Reflux - None. 3. Popliteal Vein: 3.1. Compressibility - Fully compressible: Thrombus - None : Flow - Phasic: Augmentation -Normal: Reflux - None. 4. Posterior Tibial Vein: 4.1. Compressibility - Fully compressible: Thrombus - None: Flow - Phasic: Augmentation -Normal: Reflux - None. 5. Peroneal Vein: 5.1. Compressibility - Fully compressible: Thrombus - None: Flow - Phasic: Augmentation -Normal: Reflux - None. LEFT: 1. Common Femoral Vein: 1.1. Compressibility - Fully compressible: Thrombus - None: Flow - Phasic: Augmentation -Normal: Reflux - None. 2. Femoral Vein: 2.1. Compressibility - Fully compressible: Thrombus - None: Flow - Phasic: Augmentation -Normal: Reflux - None. 3. Popliteal Vein: 3.1. Compressibility - Fully compressible: Thrombus - None : Flow - Phasic: Augmentation -Normal: Reflux - None. OTHER FINDINGS: Right: None significant. Left: Below knee amputation. IMPRESSION: Right: No evidence of deep or superficial vein thrombosis of the right lower extremity. Normal valve function noted of the right side. Left: No evidence of deep or superficial vein thrombosis of the left lower extremity. Normal valve function noted of the left side.
[2017-10-28] MEDS: Oxycodone/Acetaminophen 5/325 mg Tab PO PRN (14:46)
[2017-10-28 16:12] VITALS: BP 107/73; PULSE 90; TEMP 98.2; O2SAT 96
--- NOTE | 2017-10-28 16:39 | CARD ---
APPROVED REPORT Protocol: LEXISCAN Test Type: LEXISCAN STRESS Test Indications: PRE OP Target HR: 159 bpm Resting ECG: normal Resting Heart Rate: 83 bpm Resting Blood Pressure: 140/80mmHg submaximum (85%): 135 bpm TEST SUMMARY PREINFSNHYPERV.06:[id number]/80.0. INFUSIONDOSE 100:300.00.01.085/.0. XEAORPCHC89:310.00.01.096/.0. PROCEDURE Pharmacologic stress testing was performed using 0.4mg per 5ml of regadenoson given intravenously over 7-10 seconds. POST EXERCISE Reason for Termination: Protocol Completed Target HR: No Max HR: 85 bpm 62% of Maximum Predicted HR: 159 bpm Exercise duration: 00:30 min:sec, 0 Stage Exercise capacity: 1.0METs Max Blood Pressure: 140/80mmHg Blood Pressure response to exercise: normal resting BP - appropriate response Heart Rate response to exercise: appropriate Chest Pain: No, none Angina index: 0 Arrhythmia: No, none ST Change: No, none Deviation: 0 mm INTERPRETATION Stress EKG Conclusion: Nuclear images natasha follow EXAM: Myocardial Perfusion STRESS/REST Imaging Protocol The imaging protocol used to acquire images was Stress Tc-99m/rest Tc-99m 1 day Stress Spect myocardial perfusion imaging was performed in supine position 45 minutes following the injection of 12.3 mCi of Tc-99 Myoview. Gated Rest Spect was performed 55 minutes after intravenous 32.1 mci Tc-99 Myoview injection. The images were gated to evaluate regional wall motion and calculate ventricular ejection fraction.Images were reconstructed using backfilter projection method in short horizontal and verticle long axis. Spect slices were generated. RESTING DATA EDV54.97qaBS7.40L/min ESV18.00mlMyocardial Mass96.00g Av. Heart Rate92.00bpm EF67.00% STRESS DATA EDV89.09xtEY5.30L/min ESV32.00mlMyocardial Wdqv720.00g EF64.00% Regional WT score at stress:3.00 Regional WM score at stress:0.00 Summed WT score at stress:39.00 Av. Heart Rate91.00bpmSummed WM score at stress:16.00 LV Perf. Quant 17 Seg. SSS3.00 17 Seg. SRS2.00 17 Seg. SDS2.00 Stress Defect Extent (% LAD)0.00Rest Defect Extent (% LAD)0.00Rev. Defect Extent (% LAD)0.00 Stress Defect Extent (% LCX)33.80Rest Defect Extent (% LCX)22.50Rev. Defect Extent (% LCX)8.80 Stress Defect Extent (% RCA)0.00Rest Defect Extent (% RCA)0.00Rev. Defect Extent (% RCA)0.00 Stress Defect Extent (% ANITA)5.90Rest Defect Extent (% ANITA)3.90Rev. Defect Extent (% ANITA)1.50 Other Information Quality:Good IMPRESSION Normal Myocardial Perfusion exercise stress study Left Ventricle LV Function:Left ventricle systolic function is normal. The Ejection Fraction is >70%. Conclusion 1. No stress induced ischemia noted. Normal Lexiscan nuclear stress test. Normal EF.
--- NOTE | 2017-10-28 21:49 | CP.PCM.PN ---
Subjective - Date & Time of Evaluation Date of Evaluation: 10/28/17 Time of Evaluation: 19:15 - Subjective Subjective: Patient s/p Stress test Stress test negative for stress induced ischemia Has normal EF Cardiac point of view patient cleared for AV fistula surgery with moderate cardiac risk If benefit outweighs the risk please proceed with the surgery Will follow Objective - Vital Signs/Intake and Output Vital Signs (last 24 hours): Temp Pulse Resp BP Pulse Ox 98.2 F 90 20 107/73 96 10/28/17 15:00 10/28/17 15:00 10/28/17 15:00 10/28/17 15:00 10/28/17 15:00 Intake and Output: 10/28/17 10/29/17 18:59 06:59 Intake Total 200 Balance 200 - Medications Medications: Current Medications Aspirin (Ecotrin) 81 mg PO DAILY [facility] Last Admin: 10/28/17 10:10 Dose: Not Given Atenolol (Tenormin) 50 mg PO DAILY [facility] Last Admin: 10/28/17 10:13 Dose: Not Given Clonazepam (Klonopin) 1 mg PO TID PRN PRN Reason: Anxiety Last Admin: 10/27/17 09:53 Dose: 1 mg Clopidogrel Bisulfate (Plavix) 75 mg PO DAILY [facility] Last Admin: 10/28/17 10:12 Dose: Not Given Docusate Sodium (Colace) 100 mg PO TID [facility] Last Admin: 10/28/17 17:30 Dose: Not Given Ergocalciferol (Drisdol 50,000 Intl Units Cap) 1 cap PO Q7D [facility] Last Admin: 10/26/17 19:54 Dose: 1 cap Famotidine (Pepcid) 20 mg PO DAILY [facility] Last Admin: 10/28/17 10:12 Dose: Not Given Insulin Aspart (Novolog) 0 unit SC ACHS [facility] PRN Reason: Protocol Last Admin: 10/28/17 17:34 Dose: 1 unit Lamotrigine (Lamictal) 25 mg PO DAILY [facility] Last Admin: 10/28/17 10:12 Dose: Not Given Oxycodone/Acetaminophen (Percocet 5/325 Mg Tab) 1 tab PO BID PRN PRN Reason: Pain, moderate (4-7) Stop: 10/29/17 13:56 Last Admin: 10/28/17 14:46 Dose: 1 tab Rosuvastatin Calcium (Crestor) 10 mg PO HS [facility] Last Admin: 10/27/17 22:47 Dose: 10 mg Vitamin B Complex/Vit C/Folic Acid (Nephro-Ramy) 1 tab PO 0800 [facility] Last Admin: 10/28/17 08:07 Dose: 1 tab - Labs Labs: 10/28/17 06:28 10/28/17 06:28 PT 12.7 SECONDS (9.7-12.2) H 10/28/17 06:28 INR 1.1 10/28/17 06:28 APTT 27 SECONDS (21-34) 10/28/17 06:28
== END 2017-10-28 22:14 | disposition left against medical advice (07) | DRG 316 ==
LOC: C.ER 16:44 → C.3T 18:39
PROVIDERS: ADMIT Internal Medicine Pulmonary Disease; ATTEND Internal Medicine Pulmonary Disease
DX: I12.0 Hypertensive chronic kidney disease with stage 5 chronic kidney disease or end stage renal disease (principal); E10.22 Type 1 diabetes mellitus with diabetic chronic kidney disease; E10.40 Type 1 diabetes mellitus with diabetic neuropathy, unspecified; N18.6 End stage renal disease; D72.829 Elevated white blood cell count, unspecified; D63.1 Anemia in chronic kidney disease; E78.00 Pure hypercholesterolemia, unspecified; K21.9 Gastro-esophageal reflux disease without esophagitis; Z99.2 Dependence on renal dialysis; Z89.511 Acquired absence of right leg below knee; Z79.82 Long term (current) use of aspirin

== ENCOUNTER 2017-11-04 13:09 | Inpatient (IN) | payer MEDICAID ==
--- NOTE | 2017-11-04 14:57 | RAD ---
PROCEDURE: CHEST RADIOGRAPH, 1 VIEW HISTORY: Shortness of breath COMPARISON: 10/23/2017. FINDINGS: The right-sided dialysis catheter terminates at the cavoatrial junction. LUNGS: The lungs are well inflated. There is linear scarring in the right lower lobe. No focal consolidation. PLEURA: No pneumothorax or pleural fluid seen. CARDIOVASCULAR: Normal. OSSEOUS STRUCTURES: No significant abnormalities. VISUALIZED UPPER ABDOMEN: Normal. OTHER FINDINGS: None. IMPRESSION: No acute findings.
[2017-11-04 15:14] LABS: BASO # 0.1 K/uL (0.0-0.2); EOS # 0.2 K/uL (0.0-0.7); HEMOGLOBIN 10.9 g/dL (12.0-18.0); MONO # 1.3 K/uL (0.0-0.8)
[2017-11-04 15:18] LABS: BASO % 0.5 % (0.0-2.0); EOS % 1.5 % (0.0-4.0); LYMPH # 1.9 K/uL (1.0-4.3); LYMPH % 13.3 % (20.0-40.0); MEAN CELL VOLUME 88.1 fL (80.0-94.0); MEAN CORPUSCULAR HEMOGLOBIN 30.1 pg (27.0-31.0); MEAN CORPUSCULAR HGB CONC 34.2 g/dL (33.0-37.0); MEAN PLATELET VOLUME 8.1 fL (7.2-11.7); MONO % 9.1 % (0.0-10.0); NEUT # 10.7 K/uL (1.8-7.0); NEUT % 75.6 % (50.0-75.0); NRBC % 0.1 % (0.0-2.0); RBC 3.62 Mil/uL (4.40-5.90); RED CELL DISTRIBUTION WIDTH 14.3 % (11.5-14.5); WHITE BLOOD COUNT 14.2 K/uL (4.8-10.8)
[2017-11-04 15:44] LABS: ALBUMIN 3.5 g/dL (3.5-5.0); CALCIUM 8.2 mg/dl (8.6-10.4)
--- NOTE | 2017-11-04 15:50 | C.PDOC ---
History Of Present Illness 62-year-old male, PMHx includes renal failure (HD //Sat), presents to the emergency department with complaints of back pain after he fell out of bed today. Patient appears to be lethargic but is oriented. He cannot tell us what made him fall. He states that he had dialysis yesterday. He is unable to provide further Hx. Time Seen by Provider: 11/04/17 14:03 Chief Complaint (Nursing): Back Pain History Per: Patient History/Exam Limitations: clinical condition Onset/Duration Of Symptoms: Hrs Current Symptoms Are (Timing): Still Present Past Medical History Reviewed: Historical Data, Nursing Documentation, Vital Signs Vital Signs: Last Vital Signs Temp 98.0 F 11/04/17 13:20 Pulse 76 11/04/17 15:31 Resp 19 11/04/17 15:31 BP 102/56 L 11/04/17 15:31 Pulse Ox 95 11/04/17 16:42 - Medical History PMH: Anxiety, HTN, Hypercholesterolemia, End Stage Renal Disease, Chronic Kidney Disease Family History: States: No Known Family Hx - Social History Hx Alcohol Use: No Hx Substance Use: No Review Of Systems Review Of Systems: ROS cannot be obtained secondary to pt's inabilty to answer questions. Musculoskeletal: Positive for: Back Pain Physical Exam - Physical Exam Appears: Non-toxic, No Acute Distress, Chronically Ill Skin: Normal Color, Warm, Dry, No Rash Head: Normacephalic Eye(s): bilateral: PERRL Nose: Normal Oral Mucosa: Moist Lips: Normal Appearing Neck: Normal ROM Chest: Symmetrical Cardiovascular: Rhythm Regular, No Murmur Respiratory: Normal Breath Sounds, No Accessory Muscle Use Back: Normal Inspection, No CVA Tenderness, No Vertebral Tenderness, Muscle Spasm (diffusely) Extremity: Normal ROM, No Deformity, No Swelling Neurological/Psych: Other (No focal deficit) ED Course And Treatment - Laboratory Results Result Diagrams: 11/04/17 15:09 11/04/17 15:09 Lab Interpretation: No Acute Changes (WBC 14.2, Hgb 10.9, Hct 31.9, BUN 27, Cr 5.5, K+ 4.6) ECG: Interpreted By Wy ECG Rhythm: Sinus Rhythm, ST/T Changes (inverted I, AVL, V4-6) ECG Interpretation: No Acute Changes O2 Sat by Pulse Oximetry: 95 (RA) Pulse Ox Interpretation: Normal - Radiology CXR: Viewed By Me, Read By Radiologist CXR Interpretation: Yes: No Acute Disease - CT Scan/US CT Head Other Rad Studies (CT/US): Read By Radiologist, Radiology Report Reviewed CT/US Interpretation: Accession No. : [id number]. Patient Name / ID : DONAVON BELL / [id number]. Exam Date : 11/04/2017 16:29:15 ( Approved ). Study Comment : Sex / Age : M / 62Y. Creator : Ann Martinez. Dictator : Emmett Rod MD. Strategic Client Executive : Soil Engineer : Emmett Rod MD. Approver2 : Report Date : 11/04/2017 16:32:57. My Comment : . PROCEDURE: CT HEAD WITHOUT CONTRAST. HISTORY: altered mental status. COMPARISON: None available. TECHNIQUE: Axial computed tomography images were obtained through the head/brain without intravenous contrast. Radiation dose: Total exam DLP = 917.90 mGy-cm. This CT exam was performed using one or more of the following dose reduction techniques: Automated exposure control, adjustment of the mA and/or kV according to patient size, and/or use of iterative reconstruction technique. FINDINGS: HEMORRHAGE: No intracranial hemorrhage. BRAIN: No mass effect or edema. Mild diffuse atrophy. Moderate periventricular white matter lucency with patchy and confluent areas of deep and subcortical white matter lucency, consistent with chronic microvascular ischemic change. No evidence of acute infarct. 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 Old lacunar infarct posterior limb left internal capsule. Old pontine lacune. Old lacunar infarct left cerebellar hemisphere. VENTRICLES: Unremarkable. No hydrocephalus. CALVARIUM: Unremarkable. PARANASAL SINUSES: Mild chronic ethmoid sinusitis. MASTOID AIR CELLS: Unremarkable as visualized. No inflammatory changes. OTHER FINDINGS: None. IMPRESSION: No evidence of acute infarct. Atrophy and moderate chronic periventricular/ deep/ subcortical white matter ischemic change. Old lacunar infarcts jennifer, bilateral thalami, left internal capsule and left cerebellar hemisphere. Reevaluation Time: 16:42 Reassessment Condition: Unchanged - Physician Consult Information Time Consulting Physician Contacted: 17:32 Physician Contacted: Rossy Polk Outcome Of Conversation: Patient well known to him but has not followed up in the office for several months. Will keep on observation for altered mentla status. Disposition - Disposition Disposition: HOSPITALIZED Disposition Time: 17:33 Condition: FAIR - POA Present On Arrival: None - Clinical Impression Clinical Impression: ESRD (end stage renal disease) on dialysis, Altered mental status - Scribe Statement The provider has reviewed the documentation as recorded by the Scribe (Jonas Vera) Provider Attestation: All medical record entries made by the Scribe were at my direction and personally dictated by me. I have reviewed the chart and agree that the record accurately reflects my personal performance of the history, physical exam, medical decision making, and the department course for this patient. I have also personally directed, reviewed, and agree with the discharge instructions and disposition.
[2017-11-04] MEDS ORDERED: Morphine 4 MG/ML VIAL ONE (15:52)
--- NOTE | 2017-11-04 16:49 | CT ---
PROCEDURE: CT HEAD WITHOUT CONTRAST. HISTORY: altered mental status COMPARISON: None available. TECHNIQUE: Axial computed tomography images were obtained through the head/brain without intravenous contrast. Radiation dose: Total exam DLP = 917.90 mGy-cm. This CT exam was performed using one or more of the following dose reduction techniques: Automated exposure control, adjustment of the mA and/or kV according to patient size, and/or use of iterative reconstruction technique. FINDINGS: HEMORRHAGE: No intracranial hemorrhage. BRAIN: No mass effect or edema. Mild diffuse atrophy. Moderate periventricular white matter lucency with patchy and confluent areas of deep and subcortical white matter lucency, consistent with chronic microvascular ischemic change. No evidence of acute infarct. 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 Old lacunar infarct posterior limb left internal capsule. Old pontine lacune. Old lacunar infarct left cerebellar hemisphere. VENTRICLES: Unremarkable. No hydrocephalus. CALVARIUM: Unremarkable. PARANASAL SINUSES: Mild chronic ethmoid sinusitis MASTOID AIR CELLS: Unremarkable as visualized. No inflammatory changes. OTHER FINDINGS: None. IMPRESSION: No evidence of acute infarct. Atrophy and moderate chronic periventricular/ deep/subcortical white matter ischemic change. Old lacunar infarcts jennifer, bilateral thalami, left internal capsule and left cerebellar hemisphere.
[2017-11-05] MEDS ORDERED: Dextrose 50% SYRINGE Inj (50 ml) IV PRN (07:00)
[2017-11-05] MEDS ORDERED: Glucagon Recombinant 1 mg Inj IM PRN (07:00)
--- NOTE | 2017-11-05 07:02 | CP.PCM.PN ---
Subjective - Date & Time of Evaluation Date of Evaluation: 11/05/17 Time of Evaluation: 07:01 - Subjective Subjective: PGY2 note for Dr. Polk's Service Pt seen and examined at bedside. Nursing reports hypoglycemic overnight. Patient found alert and oriented x 3. He c/o of back pain after fall yesterday located in his "upper/mid back." Denies weakness in extremities, but admits chronic pain in his hands. On last admission patient started workup for AVF formation in left arm but pt left AMA before it could be completed. Denies chest pain, SOB, palpitations. Objective - Vital Signs/Intake and Output Vital Signs (last 24 hours): Temp Pulse Resp BP Pulse Ox 98.7 F 80 20 108/60 98 11/04/17 23:50 11/05/17 01:00 11/04/17 23:50 11/04/17 23:50 11/05/17 05:20 - Medications Medications: Current Medications Dextrose (Dextrose 50% Inj) 0 ml IV STAT PRN; Protocol PRN Reason: Hypoglycemia Protocol Dextrose (Glutose 15) 0 gm PO ONCE PRN; Protocol PRN Reason: Hypoglycemia Protocol Glucagon (Glucagen Diagnostic Kit) 0 mg IM STAT PRN; Protocol PRN Reason: Hypoglycemia Protocol Dextrose (Dextrose 5% In Water 1000 Ml) 1,000 mls @ 0 mls/hr IV .Q0M PRN; Protocol; Per Protocol PRN Reason: Hypoglycemia Protocol - Labs Labs: 11/04/17 15:09 11/04/17 15:09 - Additional Findings Additional findings: - Constitutional Appears: Non-toxic, No Acute Distress - Head Exam Head Exam: ATRAUMATIC, NORMAL INSPECTION - Eye Exam Eye Exam: EOMI - ENT Exam ENT Exam: Mucous Membranes Moist - Respiratory Exam Respiratory Exam: Clear to Ausculation Bilateral, NORMAL BREATHING PATTERN. absent: Respiratory Distress - Cardiovascular Exam Cardiovascular Exam: REGULAR RHYTHM, +S1, +S2 - GI/Abdominal Exam GI & Abdominal Exam: Soft, Normal Bowel Sounds. absent: Distended, Firm, Guarding, Tenderness - Extremities Exam Additional comments: BKA noted, toe amputation noted as well on other lower extremity - Back Exam Back Exam: No step off sign, tender to palpation in cervico-thoracic spine - Neurological Exam Neurological Exam: Alert, Awake, Oriented x3 - Psychiatric Exam Psychiatric exam: Normal Affect, Normal Mood Assessment and Plan - Assessment and Plan (Free Text) Plan: Fall Admit to Telemetry Mechanical fall after leaning over CT HEAD (11/04/17): No evidence of acute infarct. Atrophy and moderate chronic periventricular/ deep/subcortical white matter ischemic change. Old lacunar infarcts jennifer, bilateral thalami, left internal capsule and left cerebellar hemisphere. CXR (11/05/17): NAD f/u c-spine/thoracic xrays AMS Pt oriented x 3 today f/u ammonia ESRD on HD T//Sat - Nephrology, Dr. Silver is consulted. Recommends vein mapping with vascular surgery - Needs AVF placement - Dr. Iniguez consulted help appreciated - vein mapping performed - Cleared for surgery from Dr. Polk from pulm perspective - For cardiology clearance will be stress test and echo to be reviewed - per Dr. Herrera cleared for AV fistula surgery with moderate cardiac risk, if benefits outweigh risk proceed with procedure DM - Accuchecks ACHS - ISS - HgbA1c 5.7 - Will continue statin: crestor - hypoglycemia protocol Leukocytosis - Afebrile - On admission, WBC count is 14 - f/u blood cx - Monitor Anemia -Likely of chronic disease -Etiology likely secondarily due to renal disease -Hgb stable HTN - Continue home medication: HOLD Atenolol 50 mg qd - Continue Aspirin and plavix. - Questionable History of CAD. Hypertriglyceridemia - Low HDL - Monitor Diabetic Neuropathy - Continue gabapentin Prophylaxis - Pepcid - Heparin Case discussed with attending, Dr. Polk. All managements and orders per Dr. Polk
[2017-11-05] MEDS: Oxycodone/Acetaminophen 5/325 mg Tab PO PRN (11:19)
--- NOTE | 2017-11-05 13:12 | CP.PCM.CON ---
History of Present Illness - History of Present Illness History of Present Illness: Vascular surgery consult note for Dr. Cyril Myrick, PGY-1 Pt S & E at bedside. 62M w/PMH sig for ESRD on HD consulted for AVF evaluation. Pt has a Right subclavian permacath, which pt claims has been used for the past year. Pt also has a RUE AVF in the antecubital fossa, however pt claims it has never been used , does not remember when it was created, apparently created by a Dr. Brock. Only complaint is back pain s/p a fall from bed recently. No other complaints at this time. Vein mapping on 10/25 - L cephalic vein 0.11-0.22cm, basilic vein 0.11-0.23cm PMH: HTN, DM, ESRD on HD (TTS) PSH: R BKA, L toe amp, R subclavian permacath, RUE brachio-basilic AVF creation All: NKDA SH: Denies ETOH, tobacco or illicit drug use Review of Systems - Review of Systems All systems: reviewed and no additional remarkable complaints except - Constitutional Constitutional: absent: Chills, Fever - EENT Eyes: absent: Change in Vision Ears: absent: Dizziness Nose/Mouth/Throat: absent: Sore Throat - Cardiovascular Cardiovascular: absent: Chest Pain, Palpitations - Respiratory Respiratory: absent: Cough - Gastrointestinal Gastrointestinal: absent: Abdominal Pain, Nausea, Vomiting - Musculoskeletal Musculoskeletal: Back Pain - Integumentary Integumentary: absent: Rash - Neurological Neurological: absent: Numbness, Tingling - Psychiatric Psychiatric: absent: Change in Appetite Past Patient History - Past Social History Smoking Status: Smoker Currrent Status Unknown - CARDIAC Hx Hypercholesterolemia: Yes Hx Hypertension: Yes - RENAL Hx Chronic Kidney Disease: Yes - ENDOCRINE/METABOLIC Hx Diabetes Mellitus Type 1: Yes - MUSCULOSKELETAL/RHEUMATOLOGICAL Hx Falls: No - GASTROINTESTINAL Hx Gastrointestinal Disorders: Yes Hx Gastroesophageal Reflux: Yes - PSYCHIATRIC Hx Anxiety: Yes Hx Substance Use: No - SURGICAL HISTORY Hx Surgeries: Yes Hx Amputation: Yes (Left BKA, Right toe amputations) - ANESTHESIA Hx Anesthesia: Yes Hx Anesthesia Reactions: No Hx Malignant Hyperthermia: No Meds Allergies/Adverse Reactions: Allergies Allergy/AdvReac Type Severity Reaction Status Date / Time No Known Allergies Allergy Verified 11/04/17 13:22 - Medications Medications: Current Medications Aspirin (Ecotrin) 81 mg PO DAILY [facility] Last Admin: 11/05/17 11:00 Dose: 81 mg Atenolol (Tenormin) 50 mg PO DAILY [facility] Clopidogrel Bisulfate (Plavix) 75 mg PO DAILY [facility] Last Admin: 11/05/17 11:00 Dose: 75 mg Dextrose (Dextrose 50% Inj) 0 ml IV STAT PRN; Protocol PRN Reason: Hypoglycemia Protocol Dextrose (Glutose 15) 0 gm PO ONCE PRN; Protocol PRN Reason: Hypoglycemia Protocol Gabapentin (Neurontin) 400 mg PO TID [facility] Last Admin: 11/05/17 11:11 Dose: 400 mg Glucagon (Glucagen Diagnostic Kit) 0 mg IM STAT PRN; Protocol PRN Reason: Hypoglycemia Protocol Dextrose (Dextrose 5% In Water 1000 Ml) 1,000 mls @ 0 mls/hr IV .Q0M PRN; Protocol; Per Protocol PRN Reason: Hypoglycemia Protocol Oxycodone/Acetaminophen (Percocet 5/325 Mg Tab) 1 tab PO Q6H PRN PRN Reason: Pain, moderate (4-7) Stop: 11/08/17 11:08 Last Admin: 11/05/17 11:19 Dose: 1 tab Physical Exam - Constitutional Appears: Non-toxic, No Acute Distress - Head Exam Head Exam: ATRAUMATIC, NORMAL INSPECTION, NORMOCEPHALIC - Eye Exam Eye Exam: EOMI, Normal appearance - ENT Exam ENT Exam: Mucous Membranes Moist, Normal Exam - Neck Exam Neck exam: Positive for: Full Rom, Normal Inspection - Respiratory Exam Respiratory Exam: NORMAL BREATHING PATTERN. absent: Chest Wall Tenderness Additional comments: Right chest wall with subclavian permacath in place- dressing is dirty, but not saturated - Cardiovascular Exam Cardiovascular Exam: REGULAR RHYTHM, +S1, +S2 - GI/Abdominal Exam GI & Abdominal Exam: Soft. absent: Distended, Firm, Guarding, Rigid, Tenderness - Extremities Exam Extremities exam: Negative for: tenderness Additional comments: RUE antecubital fossa with palpable thrill, audible bruit, well healed linear surgical scar. LLE BKA L foot transmetarsal amputation - Neurological Exam Neurological exam: Alert Additional comments: poor historian - Psychiatric Exam Psychiatric exam: Normal Affect, Normal Mood - Skin Skin Exam: Dry, Intact, Normal Color, Warm Results - Vital Signs Recent Vital Signs: Last Vital Signs Temp 98.5 F 11/05/17 11:19 Pulse 84 11/05/17 11:19 Resp 20 11/05/17 11:19 BP 128/71 11/05/17 11:19 Pulse Ox 96 11/05/17 11:19 - Labs Result Diagrams: 11/04/17 15:09 11/04/17 15:09 Labs: Laboratory Results - last 24 hr 11/04/17 11/04/17 11/04/17 14:15 15:09 15:09 WBC 14.2 H RBC 3.62 L Hgb 10.9 L Hct 31.9 L MCV 88.1 MCH 30.1 MCHC 34.2 RDW 14.3 Plt Count 260 MPV 8.1 Neut % (Auto) 75.6 H Lymph % (Auto) 13.3 L Lincoln % (Auto) 9.1 Eos % (Auto) 1.5 Baso % (Auto) 0.5 Neut # (Auto) 10.7 H Lymph # (Auto) 1.9 Lincoln # (Auto) 1.3 H Eos # (Auto) 0.2 Baso # (Auto) 0.1 Sodium 138 Potassium 4.6 Chloride 94 L Carbon Dioxide 29 Anion Gap 20 BUN 27 H Creatinine 5.5 H Est GFR ( Amer) 13 Est GFR (Non-Af Amer) 11 POC Glucose (mg/dL) 93 Random Glucose 77 Calcium 8.2 L Magnesium 1.9 Total Bilirubin 0.9 AST 32 ALT 30 Alkaline Phosphatase 119 Ammonia Total Protein 7.0 Albumin 3.5 Globulin 3.6 Albumin/Globulin Ratio 1.0 11/04/17 11/04/17 11/05/17 21:14 21:17 06:32 WBC RBC Hgb Hct MCV MCH MCHC RDW Plt Count MPV Neut % (Auto) Lymph % (Auto) Lincoln % (Auto) Eos % (Auto) Baso % (Auto) Neut # (Auto) Lymph # (Auto) Lincoln # (Auto) Eos # (Auto) Baso # (Auto) Sodium Potassium Chloride Carbon Dioxide Anion Gap BUN Creatinine Est GFR ( Amer) Est GFR (Non-Af Amer) POC Glucose (mg/dL) < 20 L* 95 75 Random Glucose Calcium Magnesium Total Bilirubin AST ALT Alkaline Phosphatase Ammonia Total Protein Albumin Globulin Albumin/Globulin Ratio 11/05/17 11/05/17 11:16 13:00 WBC RBC Hgb Hct MCV MCH MCHC RDW Plt Count MPV Neut % (Auto) Lymph % (Auto) Lincoln % (Auto) Eos % (Auto) Baso % (Auto) Neut # (Auto) Lymph # (Auto) Lincoln # (Auto) Eos # (Auto) Baso # (Auto) Sodium Potassium Chloride Carbon Dioxide Anion Gap BUN Creatinine Est GFR ( Amer) Est GFR (Non-Af Amer) POC Glucose (mg/dL) 138 H Random Glucose Calcium Magnesium Total Bilirubin AST ALT Alkaline Phosphatase Ammonia 10 Total Protein Albumin Globulin Albumin/Globulin Ratio Assessment & Plan - Assessment and Plan (Free Text) Assessment: 62M w/ESRD on HD consulted for AVF evaluation Plan: Per Dr. Bardales- pt to have outpatient/elective superficialization of RUE AVF DW attending Elen, PGY-1 - Date & Time Date: 11/05/17 Time: 14:08
--- NOTE | 2017-11-05 13:32 | RAD ---
HISTORY: pain from fall COMPARISON: No prior. FINDINGS: BONES: Minimal anterior wedge compression deformity of the T9 and T10 vertebral bodies of indeterminate age. Remaining vertebral bodies are maintained in height. DISC SPACES: Disc spaces are maintained in height. There is a flowing ossification along the anterior longitudinal ligament of and large portion of the thoracic spine consistent with DISH. SOFT TISSUES: Normal paraspinous soft tissues. OTHER FINDINGS: Right central venous dialysis catheter noted. Incidentally noted right axillary vascular stent. IMPRESSION: Minimal anterior wedge compression of the T9 and T10 vertebral bodies, age indeterminate. DISH. Minor findings as above.
--- NOTE | 2017-11-05 13:53 | RAD ---
PROCEDURE: Cervical Spine Radiographs. HISTORY: Posttraumatic pain COMPARISON: None. FINDINGS: BONES: Alignment maintained. No fracture. Dens Intact. DISC SPACES: Normal. SOFT TISSUES: Normal. No prevertebral soft tissue swelling. OTHER FINDINGS: None. IMPRESSION: No significant or acute findings to account for/ related to the clinical presentation. Limitations of the current examination: Nondiagnostic assessment of C7 vertebral body
--- NOTE | 2017-11-05 17:48 | CP.PCM.CON ---
History of Present Illness - History of Present Illness History of Present Illness: REASONS FOR CONSULT : ESRD ON HD T T S IN NEED OF HD TODAY ANEMIA OF CKD .. H/H STABLE ALL EMR REVIEWED ALL LABS REVIEWED .. SEEN ON HD .. BP ON THE LOW SIDE History Of Present Illness 62-year-old male, PMHx includes renal failure (HD //Thu), presents to the emergency department with complaints of back pain after he fell out of bed today. Patient appears to be lethargic but is oriented. He cannot tell us what made him fall. He states that he had dialysis yesterday. He is unable to provide further Hx. Time Seen by Provider: 11/04/17 14:03 Chief Complaint (Nursing): Back Pain History Per: Patient History/Exam Limitations: clinical condition Onset/Duration Of Symptoms: Hrs Current Symptoms Are (Timing): Still Present Past Medical History Reviewed: Historical Data, Nursing Documentation, Vital Signs Vital Signs: Last Vital Signs Temp 98.0 F 11/04/17 13:20 Pulse 76 11/04/17 15:31 Resp 19 11/04/17 15:31 BP 102/56 L 11/04/17 15:31 Pulse Ox 95 11/04/17 16:42 - Medical History PMH: Anxiety, HTN, Hypercholesterolemia, End Stage Renal Disease, Chronic Kidney Disease Family History: States: No Known Family Hx - Social History Hx Alcohol Use: No Hx Substance Use: No Review Of Systems Review Of Systems: ROS cannot be obtained secondary to pt's inabilty to answer questions. Musculoskeletal: Positive for: Back Pain Physical Exam - Physical Exam Appears: Non-toxic, No Acute Distress, Chronically Ill Skin: Normal Color, Warm, Dry, No Rash Head: Normacephalic Eye(s): bilateral: PERRL Nose: Normal Oral Mucosa: Moist Lips: Normal Appearing Neck: Normal ROM Chest: Symmetrical Cardiovascular: Rhythm Regular, No Murmur Respiratory: Normal Breath Sounds, No Accessory Muscle Use Back: Normal Inspection, No CVA Tenderness, No Vertebral Tenderness, Muscle Spasm (diffusely) Extremity: Normal ROM, No Deformity, No Swelling Neurological/Psych: Other (No focal deficit) ED Course And Treatment - Laboratory Results Result Diagrams: 11/04/17 15:09 11/04/17 15:09 Lab Interpretation: No Acute Changes (WBC 14.2, Hgb 10.9, Hct 31.9, BUN 27, Cr 5.5, K+ 4.6) ECG: Interpreted By Me ECG Rhythm: Sinus Rhythm, ST/T Changes (inverted I, AVL, V4-6) ECG Interpretation: No Acute Changes O2 Sat by Pulse Oximetry: 95 (RA) Pulse Ox Interpretation: Normal - Radiology CXR: Viewed By Me, Read By Radiologist CXR Interpretation: Yes: No Acute Disease - CT Scan/US CT Head Other Rad Studies (CT/US): Read By Radiologist, Radiology Report Reviewed CT/US Interpretation: Accession No. : [id number]. Patient Name / ID : DONAVON BELL / [id number]. Exam Date : 11/04/2017 16:29:15 ( Approved ). Study Comment : Sex / Age : M / 62Y. Creator : Ann Martinez. Dictator : Emmett Rod MD. Manager Human Capital : Senior Training Specialist : Emmett Rod MD. Approver2 : Report Date : 11/04/2017 16:32:57. My Comment : . PROCEDURE: CT HEAD WITHOUT CONTRAST. HISTORY: altered mental status. COMPARISON: None available. TECHNIQUE: Axial computed tomography images were obtained through the head/brain without intravenous contrast. Radiation dose: Total exam DLP = 917.90 mGy-cm. This CT exam was performed using one or more of the following dose reduction techniques: Automated exposure control, adjustment of the mA and/or kV according to patient size, and/or use of iterative reconstruction technique. FINDINGS: HEMORRHAGE: No intracranial hemorrhage. BRAIN: No mass effect or edema. Mild diffuse atrophy. Moderate periventricular white matter lucency with patchy and confluent areas of deep and subcortical white matter lucency, consistent with chronic microvascular ischemic change. No evidence of acute infarct. 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 Old lacunar infarct posterior limb left internal capsule. Old pontine lacune. Old lacunar infarct left cerebellar hemisphere. VENTRICLES: Unremarkable. No hydrocephalus. CALVARIUM: Unremarkable. PARANASAL SINUSES: Mild chronic ethmoid sinusitis. MASTOID AIR CELLS: Unremarkable as visualized. No inflammatory changes. OTHER FINDINGS: None. IMPRESSION: No evidence of acute infarct. Atrophy and moderate chronic periventricular/ deep/ subcortical white matter ischemic change. Old lacunar infarcts jennifer, bilateral thalami, left internal capsule and left cerebellar hemisphere. Reevaluation Time: 16:42 Reassessment Condition: Unchanged Past Patient History - Past Social History Smoking Status: Smoker Currrent Status Unknown - CARDIAC Hx Hypercholesterolemia: Yes Hx Hypertension: Yes - RENAL Hx Chronic Kidney Disease: Yes - ENDOCRINE/METABOLIC Hx Diabetes Mellitus Type 1: Yes - MUSCULOSKELETAL/RHEUMATOLOGICAL Hx Falls: No - GASTROINTESTINAL Hx Gastrointestinal Disorders: Yes Hx Gastroesophageal Reflux: Yes - PSYCHIATRIC Hx Anxiety: Yes Hx Substance Use: No - SURGICAL HISTORY Hx Surgeries: Yes Hx Amputation: Yes (Left BKA, Right toe amputations) - ANESTHESIA Hx Anesthesia: Yes Hx Anesthesia Reactions: No Hx Malignant Hyperthermia: No Meds Allergies/Adverse Reactions: Allergies Allergy/AdvReac Type Severity Reaction Status Date / Time No Known Allergies Allergy Verified 11/04/17 13:22 - Medications Medications: Current Medications Aspirin (Ecotrin) 81 mg PO DAILY [facility] Last Admin: 11/05/17 11:00 Dose: 81 mg Atenolol (Tenormin) 50 mg PO DAILY [facility] Clopidogrel Bisulfate (Plavix) 75 mg PO DAILY [facility] Last Admin: 11/05/17 11:00 Dose: 75 mg Dextrose (Dextrose 50% Inj) 0 ml IV STAT PRN; Protocol PRN Reason: Hypoglycemia Protocol Dextrose (Glutose 15) 0 gm PO ONCE PRN; Protocol PRN Reason: Hypoglycemia Protocol Gabapentin (Neurontin) 400 mg PO TID [facility] Last Admin: 11/05/17 14:34 Dose: 400 mg Glucagon (Glucagen Diagnostic Kit) 0 mg IM STAT PRN; Protocol PRN Reason: Hypoglycemia Protocol Dextrose (Dextrose 5% In Water 1000 Ml) 1,000 mls @ 0 mls/hr IV .Q0M PRN; Protocol; Per Protocol PRN Reason: Hypoglycemia Protocol Oxycodone/Acetaminophen (Percocet 5/325 Mg Tab) 1 tab PO Q6H PRN PRN Reason: Pain, moderate (4-7) Stop: 11/08/17 11:08 Last Admin: 11/05/17 11:19 Dose: 1 tab Results - Vital Signs Recent Vital Signs: Last Vital Signs Temp 98.4 F 11/05/17 15:40 Pulse 74 11/05/17 16:45 Resp 20 11/05/17 15:40 BP 108/57 L 11/05/17 16:45 Pulse Ox 100 11/05/17 15:40 - Labs Result Diagrams: 11/04/17 15:09 11/04/17 15:09 Labs: Laboratory Results - last 24 hr 11/04/17 11/04/17 11/05/17 21:14 21:17 06:32 POC Glucose (mg/dL) < 20 L* 95 75 Ammonia 11/05/17 11/05/17 11/05/17 11:16 13:00 16:02 POC Glucose (mg/dL) 138 H 146 H Ammonia 10 Assessment & Plan - Assessment and Plan (Free Text) Plan: ESRD ON HD T T S .. NOW ON HD BP IS LOW ON HD .. WILL GIVE 1 L NS .. ALSO MIDODRIN 10 MG ANEMIA OF CKD .. H/H STABLE MMP P : HD NOW LOW BP ON HD .. TO GIVE 1L NS AND MIDODRIN 10 MG C/O PRESENT CARE WILL ADJUST MEDS FOR LOW BP ORDERS WRITTEN WILL F/U - Date & Time Date: 11/05/17 Time: 16:00
[2017-11-05] MEDS: Ergocalciferol 50,000 Intl Units Cap PO SCH (19:47)
--- NOTE | 2017-11-06 06:12 | HP ---
HISTORY OF PRESENT ILLNESS: A 62-year-old male admitted to the hospital with chief complaint of weakness, fatigue, altered mental status. The patient has a fall at home which is mechanical. The patient is a smoker. PHYSICAL EXAMINATION: GENERAL: The patient is awake, alert, and oriented. VITAL SIGNS: Temperature 98, pulse 90, blood pressure 160/90. HEENT: Within normal limits. NECK: Supple. CHEST: Symmetrical. HEART: Regular. ABDOMEN: Soft. EXTREMITIES: No edema. There is tenderness over the right hand, AV fistula on the right arm. IMPRESSION: The patient suffers from altered mental status, dizziness, renal failure. Patient getting bed rest, . Christopher Polk MD
[2017-11-06] MEDS: Oxycodone/Acetaminophen 5/325 mg Tab PO PRN ×3 (06:32→20:13)
[2017-11-06 08:30] LABS: BASO # 0.1 K/uL (0.0-0.2); BASO % 0.7 % (0.0-2.0); EOS # 0.3 K/uL (0.0-0.7); EOS % 2.7 % (0.0-4.0); HEMOGLOBIN 9.5 g/dL (12.0-18.0); LYMPH # 1.3 K/uL (1.0-4.3); LYMPH % 12.3 % (20.0-40.0); MEAN CORPUSCULAR HEMOGLOBIN 30.6 pg (27.0-31.0); MEAN CORPUSCULAR HGB CONC 34.8 g/dL (33.0-37.0); MEAN PLATELET VOLUME 7.7 fL (7.2-11.7); MONO # 0.9 K/uL (0.0-0.8); MONO % 8.6 % (0.0-10.0); NEUT # 8.1 K/uL (1.8-7.0); NEUT % 75.7 % (50.0-75.0); RBC 3.12 Mil/uL (4.40-5.90); RED CELL DISTRIBUTION WIDTH 14.4 % (11.5-14.5); WHITE BLOOD COUNT 10.8 K/uL (4.8-10.8)
[2017-11-06 08:51] LABS: ALB/GLOB RATIO 0.9 (1.0-2.1); CALCIUM 7.9 mg/dl (8.6-10.4)
[2017-11-06] MEDS: Multivitamin Vitamin B Complex (Nephro-Vite) Tab PO SCH (08:52)
--- NOTE | 2017-11-06 09:27 | CP.PCM.PN ---
Subjective - Date & Time of Evaluation Date of Evaluation: 11/06/17 Time of Evaluation: 10:23 - Subjective Subjective: PGY 2 Medicine Progress Note- Dr. Polk's service Patient seen and examined. Patient is complaining of generalized pain. He denies fevers, chills, chest pain or palpitations. Objective - Vital Signs/Intake and Output Vital Signs (last 24 hours): Temp Pulse Resp BP Pulse Ox 98.7 F 71 18 119/50 L 98 11/06/17 07:12 11/06/17 07:12 11/06/17 07:12 11/06/17 07:12 11/06/17 07:12 Intake and Output: 11/06/17 11/06/17 06:59 18:59 Intake Total 240 Balance 240 - Medications Medications: Current Medications Ascorbic Acid (Vitamin C 500 Mg Tab) 500 mg PO DAILY [facility] Aspirin (Ecotrin) 81 mg PO DAILY [facility] Last Admin: 11/05/17 11:00 Dose: 81 mg Atenolol (Tenormin) 50 mg PO DAILY [facility] Clopidogrel Bisulfate (Plavix) 75 mg PO DAILY [facility] Last Admin: 11/05/17 11:00 Dose: 75 mg Dextrose (Dextrose 50% Inj) 0 ml IV STAT PRN; Protocol PRN Reason: Hypoglycemia Protocol Dextrose (Glutose 15) 0 gm PO ONCE PRN; Protocol PRN Reason: Hypoglycemia Protocol Ergocalciferol (Drisdol 50,000 Intl Units Cap) 1 cap PO Q7D [facility] Last Admin: 11/05/17 19:47 Dose: Not Given Glucagon (Glucagen Diagnostic Kit) 0 mg IM STAT PRN; Protocol PRN Reason: Hypoglycemia Protocol Dextrose (Dextrose 5% In Water 1000 Ml) 1,000 mls @ 0 mls/hr IV .Q0M PRN; Protocol; Per Protocol PRN Reason: Hypoglycemia Protocol Oxycodone/Acetaminophen (Percocet 5/325 Mg Tab) 1 tab PO Q6H PRN PRN Reason: Pain, moderate (4-7) Stop: 11/08/17 11:08 Last Admin: 11/06/17 06:32 Dose: 1 tab Vitamin B Complex/Vit C/Folic Acid (Nephro-Ramy) 1 tab PO 0800 [facility] Last Admin: 11/06/17 08:52 Dose: 1 tab - Labs Labs: 11/06/17 08:13 11/06/17 08:13 - Constitutional Appears: Non-toxic, No Acute Distress - Head Exam Head Exam: ATRAUMATIC, NORMAL INSPECTION - Eye Exam Eye Exam: EOMI, PERRL Pupil Exam: NORMAL ACCOMODATION - ENT Exam ENT Exam: Mucous Membranes Moist - Neck Exam Neck Exam: Full ROM - Respiratory Exam Respiratory Exam: NORMAL BREATHING PATTERN - Cardiovascular Exam Cardiovascular Exam: +S1, +S2 - GI/Abdominal Exam GI & Abdominal Exam: Soft - Extremities Exam Extremities Exam: Full ROM, Normal Capillary Refill - Back Exam Back Exam: Full ROM - Neurological Exam Neurological Exam: Alert, Awake, Oriented x3 - Psychiatric Exam Psychiatric exam: Normal Affect, Normal Mood - Skin Skin Exam: Dry, Normal Color, Warm Assessment and Plan - Assessment and Plan (Free Text) Assessment: Fall Admit to Telemetry Mechanical fall after leaning over CT HEAD (11/04/17): No evidence of acute infarct. Atrophy and moderate chronic periventricular/ deep/subcortical white matter ischemic change. Old lacunar infarcts jennifer, bilateral thalami, left internal capsule and left cerebellar hemisphere. CXR (11/05/17): NAD f/u c-spine/thoracic xrays AMS f/u ammonia ESRD on HD T//Sat - Nephrology, Dr. Silver is consulted. Recommends vein mapping with vascular surgery - Needs AVF placement - Dr. Iniguez consulted help appreciated - vein mapping performed - Cleared for surgery from Dr. Polk from pulm perspective - Cardiology- Dr. Herrera cleared for AV fistula surgery with moderate cardiac risk , if benefits outweigh risk, patient may proceed with procedure - Surgery to perform procedure outpatient Recurrent Falls - F/U Physical Therapy recommendations. DM - Accuchecks ACHS - ISS - HgbA1c 5.7 - Will continue statin: crestor - hypoglycemia protoco-With Neuropathy- cont gabapentin Leukocytosis - Resolved -Afebrile - On admission, WBC count is 14 - f/u blood cx - Monitor Anemia -Likely of chronic disease -Etiology likely secondarily due to renal disease -Hgb stable HTN - Continue home medication: HOLD Atenolol 50 mg qd - Continue Aspirin and plavix. - Questionable History of CAD. Hypertriglyceridemia - Low HDL - Monitor Prophylaxis - Pepcid - Heparin D/C pending physical therapy recommendations. Case discussed with attending, Dr. Polk. All managements and orders per Dr. Polk
--- NOTE | 2017-11-06 10:24 | VASCLAB ---
PROCEDURE: Right Upper Extremity Venous Duplex Exam HISTORY: Fistula planning, poor veins on Left PRIORS: None. TECHNIQUE: Right upper extremity, internal jugular, subclavian, axillary, brachial, ulnar, radial, basilic and upper cephalic veins were evaluated. Flow was assessed with color Doppler, compressibility, assessment of phasic flow and augmentation response. Report prepared by BROWN Carlson, RVT FINDINGS: RIGHT: 1. Internal Jugular Vein: Compressibility - Fully compressible: Thrombus - None : Flow - Phasic 2. Subclavian Vein:Compressibility - Fully compressible: Thrombus - None : Flow - Phasic 3. Axillary Vein: Compressibility - Fully compressible: Thrombus - None 4. Brachial Vein: Compressibility - Fully compressible: Thrombus - None 5. Ulnar Vein:Compressibility - Fully compressible: Thrombus - None 6. Radial Vein:Compressibility - Fully compressible: Thrombus - None 7. Cephalic Vein: 7.1. Upper Arm: Compressibility - Incompressible: thrombus - Acute 7.2. Forearm: Compressibility - Fully compressible: thrombus - None Proximal Diameter: 0.26cm. Mid Diameter:0.21cm. Distal Diameter: 0.20cm 8. Basilic Vein:Compressibility - Fully compressible: thrombus - None 8.1. Upper Arm:Proximal Diameter: 0.34cm. Mid Diameter: 0.18cm. Distal Diameter: 0.16cm. Antecubital Fossa: Diameter: 0.20cm. 8.2. Forearm: Proximal Diameter: 0.11cm. Mid Diameter:cm. Distal Diameter: cm. OTHER FINDINGS: RN [place] notified about the finding. IMPRESSION: Acute superficial vein thrombosis of the right upper arm cephalic vein. The diameter measurements of the right cephalic vein is measured between 0.20 cm and 0.26 cm and basilic vein is measured between 0.11 cm and 0.30 cm.
--- NOTE | 2017-11-06 13:22 | CARD ---
APPROVED REPORT EKG Measurement Heart [id number] <Conclusion> Normal sinus rhythm T wave abnormality, consider lateral ischemia Abnormal ECG
--- NOTE | 2017-11-06 23:16 | CP.PCM.PN ---
Subjective - Date & Time of Evaluation Date of Evaluation: 11/06/17 Time of Evaluation: 18:00 - Subjective Subjective: FEELS BETTER HAD HD YESTERDAY .. TOLERATED WELL FEELS IMPROVED ALL EMR REVIEWED Objective - Vital Signs/Intake and Output Vital Signs (last 24 hours): Temp Pulse Resp BP Pulse Ox 98.4 F 75 20 123/62 95 11/06/17 15:04 11/06/17 15:04 11/06/17 15:04 11/06/17 15:04 11/06/17 20:31 Intake and Output: 11/06/17 11/07/17 18:59 06:59 Intake Total 118 Balance 118 - Medications Medications: Current Medications Ascorbic Acid (Vitamin C 500 Mg Tab) 500 mg PO DAILY [facility] Last Admin: 11/06/17 10:58 Dose: 500 mg Aspirin (Ecotrin) 81 mg PO DAILY [facility] Last Admin: 11/06/17 10:59 Dose: 81 mg Atenolol (Tenormin) 50 mg PO DAILY [facility] Last Admin: 11/06/17 10:59 Dose: 50 mg Clopidogrel Bisulfate (Plavix) 75 mg PO DAILY [facility] Last Admin: 11/06/17 10:59 Dose: 75 mg Dextrose (Dextrose 50% Inj) 0 ml IV STAT PRN; Protocol PRN Reason: Hypoglycemia Protocol Dextrose (Glutose 15) 0 gm PO ONCE PRN; Protocol PRN Reason: Hypoglycemia Protocol Ergocalciferol (Drisdol 50,000 Intl Units Cap) 1 cap PO Q7D [facility] Last Admin: 11/05/17 19:47 Dose: Not Given Glucagon (Glucagen Diagnostic Kit) 0 mg IM STAT PRN; Protocol PRN Reason: Hypoglycemia Protocol Dextrose (Dextrose 5% In Water 1000 Ml) 1,000 mls @ 0 mls/hr IV .Q0M PRN; Protocol; Per Protocol PRN Reason: Hypoglycemia Protocol Oxycodone/Acetaminophen (Percocet 5/325 Mg Tab) 1 tab PO Q6H PRN PRN Reason: Pain, moderate (4-7) Stop: 11/08/17 11:08 Last Admin: 11/06/17 20:13 Dose: 1 tab Vitamin B Complex/Vit C/Folic Acid (Nephro-Ramy) 1 tab PO 0800 [facility] Last Admin: 11/06/17 08:52 Dose: 1 tab - Labs Labs: 11/06/17 08:13 04/27/18 08:13 Assessment and Plan - Assessment and Plan (Free Text) Assessment: ESRD ON HD T T S .. TO BE C/O ANEMIA OF CKD .. H/H STABLE ACCESS PROBLEM .. VASCULAR SURGERY TO FIX MMP P : C/O PRESENT MEDS C/O CURRENT CARE
[2017-11-07] MEDS: Oxycodone/Acetaminophen 5/325 mg Tab PO PRN ×2 (07:49→13:59)
[2017-11-07] MEDS: Multivitamin Vitamin B Complex (Nephro-Vite) Tab PO SCH (08:48)
--- NOTE | 2017-11-07 16:31 | CP.PCM.PN ---
Subjective - Date & Time of Evaluation Date of Evaluation: 11/07/17 Time of Evaluation: 16:29 - Subjective Subjective: on hd tts kaesy proc bp on the low side 1.5 off on midodrine no complaints Objective - Vital Signs/Intake and Output Vital Signs (last 24 hours): Temp Pulse Resp BP Pulse Ox 97.7 F 114 H 20 122/69 96 11/07/17 12:53 11/07/17 12:53 11/07/17 12:53 11/07/17 12:10 11/07/17 12:10 Intake and Output: 11/07/17 11/07/17 06:59 18:59 Intake Total 218 480 Output Total 500 Balance 218 -20 - Medications Medications: Current Medications Ascorbic Acid (Vitamin C 500 Mg Tab) 500 mg PO DAILY [facility] Last Admin: 11/07/17 09:38 Dose: Not Given Aspirin (Ecotrin) 81 mg PO DAILY [facility] Last Admin: 11/07/17 09:38 Dose: Not Given Atenolol (Tenormin) 50 mg PO DAILY [facility] Last Admin: 11/07/17 09:38 Dose: Not Given Clopidogrel Bisulfate (Plavix) 75 mg PO DAILY [facility] Last Admin: 11/07/17 09:38 Dose: Not Given Dextrose (Dextrose 50% Inj) 0 ml IV STAT PRN; Protocol PRN Reason: Hypoglycemia Protocol Dextrose (Glutose 15) 0 gm PO ONCE PRN; Protocol PRN Reason: Hypoglycemia Protocol Ergocalciferol (Drisdol 50,000 Intl Units Cap) 1 cap PO Q7D [facility] Last Admin: 11/05/17 19:47 Dose: Not Given Glucagon (Glucagen Diagnostic Kit) 0 mg IM STAT PRN; Protocol PRN Reason: Hypoglycemia Protocol Dextrose (Dextrose 5% In Water 1000 Ml) 1,000 mls @ 0 mls/hr IV .Q0M PRN; Protocol; Per Protocol PRN Reason: Hypoglycemia Protocol Oxycodone/Acetaminophen (Percocet 5/325 Mg Tab) 1 tab PO Q6H PRN PRN Reason: Pain, moderate (4-7) Stop: 11/08/17 11:08 Last Admin: 11/07/17 13:59 Dose: 1 tab Vitamin B Complex/Vit C/Folic Acid (Nephro-Ramy) 1 tab PO 0800 [facility] Last Admin: 11/07/17 08:48 Dose: 1 tab - Labs Labs: 11/06/17 08:13 11/06/17 08:13 - Constitutional Appears: Non-toxic - Head Exam Head Exam: NORMAL INSPECTION - Eye Exam Eye Exam: Normal appearance - ENT Exam ENT Exam: Mucous Membranes Moist - Neck Exam Neck Exam: Normal Inspection - Respiratory Exam Respiratory Exam: NORMAL BREATHING PATTERN - Cardiovascular Exam Cardiovascular Exam: REGULAR RHYTHM - GI/Abdominal Exam GI & Abdominal Exam: Soft, Normal Bowel Sounds - Neurological Exam Neurological Exam: Alert, Awake - Psychiatric Exam Psychiatric exam: Normal Affect, Normal Mood - Skin Skin Exam: Dry, Warm Assessment and Plan - Assessment and Plan (Free Text) Assessment: Assessment: Fall Admit to Telemetry Mechanical fall after leaning over CT HEAD (11/04/17): No evidence of acute infarct. Atrophy and moderate chronic periventricular/ deep/subcortical white matter ischemic change. Old lacunar infarcts jennifer, bilateral thalami, left internal capsule and left cerebellar hemisphere. CXR (11/05/17): NAD f/u c-spine/thoracic xrays AMS f/u ammonia ESRD on HD T//Thu - Nephrology, Dr. Silver is consulted. Recommends vein mapping with vascular surgery - Needs AVF placement - Dr. Iniguez consulted help appreciated - vein mapping performed - Cleared for surgery from Dr. Polk from pulm perspective - Cardiology- Dr. Herrera cleared for AV fistula surgery with moderate cardiac risk , if benefits outweigh risk, patient may proceed with procedure - Surgery to perform procedure outpatient Recurrent Falls - F/U Physical Therapy recommendations. DM - Accuchecks ACHS - ISS - HgbA1c 5.7 - Will continue statin: crestor - hypoglycemia protoco-With Neuropathy- cont gabapentin Leukocytosis - Resolved -Afebrile - On admission, WBC count is 14 - f/u blood cx - Monitor Anemia -Likely of chronic disease -Etiology likely secondarily due to renal disease -Hgb stable HTN - Continue home medication: HOLD Atenolol 50 mg qd - Continue Aspirin and plavix. - Questionable History of CAD. Hypertriglyceridemia - Low HDL - Monitor Prophylaxis - Pepcid - Heparin Plan: hd tts
[2017-11-08] MEDS: Oxycodone/Acetaminophen 5/325 mg Tab PO PRN (09:00)
[2017-11-08] MEDS: Multivitamin Vitamin B Complex (Nephro-Vite) Tab PO SCH (09:03)
[2017-11-08] MEDS ORDERED: Oxycodone/Acetaminophen 5/325 mg Tab PO ONE (16:18)
[2017-11-09] MEDS: Multivitamin Vitamin B Complex (Nephro-Vite) Tab PO SCH (08:51)
[2017-11-09] MEDS: Oxycodone/Acetaminophen 5/325 mg Tab PO PRN ×3 (08:51→20:31)
--- NOTE | 2017-11-09 11:02 | PN ---
DATE: 11/08/2017 SUBJECTIVE: The patient with weakness, supportive care, possible OR tomorrow. Christopher Polk MD
--- NOTE | 2017-11-09 11:46 | CP.PCM.PN ---
Subjective - Date & Time of Evaluation Date of Evaluation: 11/09/17 Time of Evaluation: 10:35 - Subjective Subjective: PGY 2 Medicine Note- Dr. Polk's service Patient seen and examined in no apparent acute distress. Patient denies any current chest pain, dyspnea, shortness of breath, nausea, vomiting, diarrhea or constipation at this time. Objective - Vital Signs/Intake and Output Vital Signs (last 24 hours): Temp Pulse Resp BP Pulse Ox 98.4 F 90 20 131/68 96 11/09/17 07:30 11/09/17 08:00 11/09/17 07:30 11/09/17 07:30 11/09/17 08:00 Intake and Output: 11/09/17 11/09/17 06:59 18:59 Intake Total 240 Balance 240 - Medications Medications: Current Medications Ascorbic Acid (Vitamin C 500 Mg Tab) 500 mg PO DAILY [facility] Last Admin: 11/09/17 10:06 Dose: 500 mg Aspirin (Ecotrin) 81 mg PO DAILY [facility] Last Admin: 11/09/17 10:06 Dose: 81 mg Atenolol (Tenormin) 50 mg PO DAILY [facility] Last Admin: 11/09/17 10:06 Dose: 50 mg Clopidogrel Bisulfate (Plavix) 75 mg PO DAILY [facility] Last Admin: 11/09/17 10:06 Dose: 75 mg Dextrose (Dextrose 50% Inj) 0 ml IV STAT PRN; Protocol PRN Reason: Hypoglycemia Protocol Dextrose (Glutose 15) 0 gm PO ONCE PRN; Protocol PRN Reason: Hypoglycemia Protocol Ergocalciferol (Drisdol 50,000 Intl Units Cap) 1 cap PO Q7D [facility] Last Admin: 11/05/17 19:47 Dose: Not Given Glucagon (Glucagen Diagnostic Kit) 0 mg IM STAT PRN; Protocol PRN Reason: Hypoglycemia Protocol Oxycodone/Acetaminophen (Percocet 5/325 Mg Tab) 1 tab PO Q6H PRN PRN Reason: Pain, moderate (4-7) Stop: 11/11/17 18:20 Last Admin: 11/09/17 08:51 Dose: 1 tab Vitamin B Complex/Vit C/Folic Acid (Nephro-Ramy) 1 tab PO 0800 [facility] Last Admin: 11/09/17 08:51 Dose: 1 tab - Labs Labs: 11/06/17 08:13 11/06/17 08:13 - Constitutional Appears: Non-toxic, No Acute Distress - Head Exam Head Exam: ATRAUMATIC, NORMAL INSPECTION - Eye Exam Eye Exam: EOMI, Normal appearance - ENT Exam ENT Exam: Mucous Membranes Moist - Respiratory Exam Respiratory Exam: NORMAL BREATHING PATTERN - Cardiovascular Exam Cardiovascular Exam: +S1, +S2 - GI/Abdominal Exam GI & Abdominal Exam: Soft, Normal Bowel Sounds - Extremities Exam Additional comments: BKA noted - Neurological Exam Neurological Exam: Alert, Awake, Oriented x3 - Psychiatric Exam Psychiatric exam: Normal Affect, Normal Mood - Skin Skin Exam: Dry, Normal Color, Warm Assessment and Plan - Assessment and Plan (Free Text) Assessment: Recurrent Fall Admit to Telemetry Mechanical fall after leaning over CT HEAD (11/04/17): No evidence of acute infarct. Atrophy and moderate chronic periventricular/ deep/subcortical white matter ischemic change. Old lacunar infarcts jennifer, bilateral thalami, left internal capsule and left cerebellar hemisphere. CXR (11/05/17): NAD f/u c-spine/thoracic xrays AMS Ammonia 10 on 11/05 ESRD on HD T//Sat - Nephrology, Dr. Silver is consulted. Recommends vein mapping with vascular surgery - Needs AVF placement - Dr. Iinguez consulted help appreciated - vein mapping performed - Cleared for surgery from Dr. Polk from pulm perspective - Cardiology- Dr. Herrera cleared for AV fistula surgery with moderate cardiac risk , if benefits outweigh risk, patient may proceed with procedure - Surgery to perform procedure outpatient DM - Accuchecks ACHS - ISS - HgbA1c 5.7 - Will continue statin: crestor - hypoglycemia protoco-With Neuropathy- cont gabapentin Leukocytosis - Resolved -Afebrile -F/u blood cx - Monitor Anemia -Likely of chronic disease -Etiology likely secondarily due to renal disease -Hgb stable HTN - Continue home medication: HOLD Atenolol 50 mg qd - Continue Aspirin and plavix. - Questionable History of CAD. Hypertriglyceridemia - Low HDL - Monitor Prophylaxis - Pepcid - Heparin D/C pending physical therapy recommendations. Awaiting authorization. Case discussed with attending, Dr. Polk. All managements and orders per Dr. Polk
[2017-11-09 21:02] LABS: BASO # 0.1 K/uL (0.0-0.2); BASO % 0.7 % (0.0-2.0); EOS # 0.4 K/uL (0.0-0.7); EOS % 3.9 % (0.0-4.0); HEMOGLOBIN 10.6 g/dL (12.0-18.0); LYMPH # 1.5 K/uL (1.0-4.3); LYMPH % 16.7 % (20.0-40.0); MEAN CORPUSCULAR HEMOGLOBIN 30.3 pg (27.0-31.0); MEAN CORPUSCULAR HGB CONC 33.7 g/dL (33.0-37.0); MEAN PLATELET VOLUME 7.5 fL (7.2-11.7); MONO # 0.8 K/uL (0.0-0.8); NEUT # 6.5 K/uL (1.8-7.0); NEUT % 69.7 % (50.0-75.0); RBC 3.51 Mil/uL (4.40-5.90); RED CELL DISTRIBUTION WIDTH 14.8 % (11.5-14.5); WHITE BLOOD COUNT 9.3 K/uL (4.8-10.8)
--- NOTE | 2017-11-09 23:21 | CP.PCM.PN ---
Subjective - Date & Time of Evaluation Date of Evaluation: 11/09/17 Time of Evaluation: 11:00 - Subjective Subjective: SEEN ON RENAL F/U LONG DISCUSSION WITH THE NOT DOING WELL POOR APETITE DEPRESSED Objective - Vital Signs/Intake and Output Vital Signs (last 24 hours): Temp Pulse Resp BP Pulse Ox 98.4 F 74 20 110/65 98 11/09/17 15:00 11/09/17 16:10 11/09/17 15:00 11/09/17 15:00 11/09/17 15:00 Intake and Output: 11/09/17 11/10/17 18:59 06:59 Intake Total 480 Output Total 350 Balance 480 -350 - Medications Medications: Current Medications Ascorbic Acid (Vitamin C 500 Mg Tab) 500 mg PO DAILY [facility] Last Admin: 11/09/17 10:06 Dose: 500 mg Aspirin (Ecotrin) 81 mg PO DAILY [facility] Last Admin: 11/09/17 10:06 Dose: 81 mg Atenolol (Tenormin) 50 mg PO DAILY [facility] Last Admin: 11/09/17 10:06 Dose: 50 mg Clopidogrel Bisulfate (Plavix) 75 mg PO DAILY [facility] Last Admin: 11/09/17 10:06 Dose: 75 mg Dextrose (Dextrose 50% Inj) 0 ml IV STAT PRN; Protocol PRN Reason: Hypoglycemia Protocol Dextrose (Glutose 15) 0 gm PO ONCE PRN; Protocol PRN Reason: Hypoglycemia Protocol Ergocalciferol (Drisdol 50,000 Intl Units Cap) 1 cap PO Q7D [facility] Last Admin: 11/05/17 19:47 Dose: Not Given Glucagon (Glucagen Diagnostic Kit) 0 mg IM STAT PRN; Protocol PRN Reason: Hypoglycemia Protocol Oxycodone/Acetaminophen (Percocet 5/325 Mg Tab) 1 tab PO Q6H PRN PRN Reason: Pain, moderate (4-7) Stop: 11/11/17 18:20 Last Admin: 11/09/17 20:31 Dose: 1 tab Vitamin B Complex/Vit C/Folic Acid (Nephro-Ramy) 1 tab PO 0800 [facility] Last Admin: 11/09/17 08:51 Dose: 1 tab - Labs Labs: 11/09/17 20:58 11/06/17 08:13 Assessment and Plan - Assessment and Plan (Free Text) Assessment: ON HD T T S .. TO BE C/O ANEMIAOF CKD .. H/H STABLE FAILURE TO THRIVE MMP P: C/O CURRENT CARE C/O PRESENT MANAGEMENT
[2017-11-10] MEDS: Multivitamin Vitamin B Complex (Nephro-Vite) Tab PO SCH (07:53)
[2017-11-10 08:12] LABS: BASO # 0.1 K/uL (0.0-0.2); BASO % 0.7 % (0.0-2.0); EOS # 0.4 K/uL (0.0-0.7); EOS % 4.3 % (0.0-4.0); HEMOGLOBIN 10.2 g/dL (12.0-18.0); LYMPH # 1.6 K/uL (1.0-4.3); LYMPH % 15.3 % (20.0-40.0); MEAN CORPUSCULAR HEMOGLOBIN 30.6 pg (27.0-31.0); MEAN CORPUSCULAR HGB CONC 34.9 g/dL (33.0-37.0); MEAN PLATELET VOLUME 7.5 fL (7.2-11.7); MONO # 0.9 K/uL (0.0-0.8); MONO % 9.1 % (0.0-10.0); NEUT # 7.3 K/uL (1.8-7.0); NEUT % 70.6 % (50.0-75.0); RBC 3.33 Mil/uL (4.40-5.90); RED CELL DISTRIBUTION WIDTH 15.3 % (11.5-14.5); WHITE BLOOD COUNT 10.3 K/uL (4.8-10.8)
[2017-11-10 08:13] LABS: INR 1.1; PROTHROMBIN TIME 12.5 SECONDS (9.7-12.2)
[2017-11-10 08:19] LABS: MEAN CELL VOLUME 87.5 fL (80.0-94.0)
[2017-11-10 08:37] LABS: ALB/GLOB RATIO 0.9 (1.0-2.1); ALBUMIN 3.1 g/dL (3.5-5.0); CALCIUM 8.3 mg/dl (8.6-10.4)
[2017-11-10] MEDS ORDERED: HEPARIN-NS 5,000 UNITS/500 ML 5,000 UNIT/500 ML BAG IV ONE (09:15)
[2017-11-10] MEDS ORDERED: Lidocaine Hydrochloride 0 ML INJ ONE (09:19)
[2017-11-10] MEDS ORDERED: ceFAZolin 1 gm in NS 2 GM/200 ML BAG IVPB ONE (09:19)
[2017-11-10] MEDS ORDERED: Propofol 10 mg/ml Inj (20 ML) ONE (09:59)
[2017-11-10] MEDS ORDERED: HYDROmorphone 0.5 mg/0.5 ml ISec IVP PRN ×2 (10:38→13:38)
[2017-11-10] MEDS ORDERED: Neostigmine Methylsulfate 3mg/3ml Syringe IV ONE (11:54)
[2017-11-10] MEDS ORDERED: Lidocaine Hydrochloride 10 ML INJ ONE (12:44)
[2017-11-10] MEDS ORDERED: Bupivacaine HCl 0.25% PF (30 ml) Inj ONE (12:44)
--- NOTE | 2017-11-10 13:20 | PCM.SURG1 ---
Surgeon's Initial Post Op Note - Surgeon's Notes Surgeon: Dr. Bardales Deputy Coroner: PGY1 Type of Anesthesia: General Endo Pre-Operative Diagnosis: End Stage Renal Disease Operative Findings: See Op note Post-Operative Diagnosis: as above Operation Performed: superficialization of Right upper extremity arteriovenous fistua Specimen/Specimens Removed: none Estimated Blood Loss: EBL {In ML}: 15 Drains Used: No Drains Date of Surgery/Procedure: 11/10/17 Time of Surgery/Procedure: 13:20
[2017-11-10] MEDS ORDERED: Dextrose 5%/0.45% NS 500 ML IV ONE (13:25)
[2017-11-10] MEDS: Oxycodone/Acetaminophen 5/325 mg Tab PO PRN (18:44)
--- NOTE | 2017-11-10 22:05 | CP.PCM.PN ---
Subjective - Date & Time of Evaluation Date of Evaluation: 11/10/17 Time of Evaluation: 13:00 - Subjective Subjective: SEEN ON RENAL F/U S/P SUPERFICIALIZATION OF L ARM AVF D/W DR ASENCIO AT [facility]ENGTH FOR HD TODAY .. BP ON THE LOW SIDE Objective - Vital Signs/Intake and Output Vital Signs (last 24 hours): Temp Pulse Resp BP Pulse Ox 97.9 F 85 18 108/61 97 11/10/17 18:59 11/10/17 19:11 11/10/17 18:59 11/10/17 18:59 11/10/17 18:59 Intake and Output: 11/10/17 11/11/17 18:59 06:59 Intake Total 798 Balance 798 - Medications Medications: Current Medications Ascorbic Acid (Vitamin C 500 Mg Tab) 500 mg PO DAILY [facility] Last Admin: 11/10/17 10:06 Dose: Not Given Aspirin (Ecotrin) 81 mg PO DAILY [facility] Last Admin: 11/09/17 10:06 Dose: 81 mg Atenolol (Tenormin) 50 mg PO DAILY [facility] Last Admin: 11/10/17 10:05 Dose: Not Given Clopidogrel Bisulfate (Plavix) 75 mg PO DAILY [facility] Last Admin: 11/09/17 10:06 Dose: 75 mg Dextrose (Dextrose 50% Inj) 0 ml IV STAT PRN; Protocol PRN Reason: Hypoglycemia Protocol Dextrose (Glutose 15) 0 gm PO ONCE PRN; Protocol PRN Reason: Hypoglycemia Protocol Ergocalciferol (Drisdol 50,000 Intl Units Cap) 1 cap PO Q7D [facility] Last Admin: 11/05/17 19:47 Dose: Not Given Glucagon (Glucagen Diagnostic Kit) 0 mg IM STAT PRN; Protocol PRN Reason: Hypoglycemia Protocol Oxycodone/Acetaminophen (Percocet 5/325 Mg Tab) 1 tab PO Q6H PRN PRN Reason: Pain, moderate (4-7) Stop: 11/11/17 18:20 Last Admin: 11/10/17 18:44 Dose: 1 tab Vitamin B Complex/Vit C/Folic Acid (Nephro-Ramy) 1 tab PO 0800 [facility] Last Admin: 11/10/17 07:53 Dose: Not Given - Labs Labs: 11/10/17 07:56 11/10/17 07:56 PT 12.5 SECONDS (9.7-12.2) H 11/10/17 07:56 INR 1.1 11/10/17 07:56 APTT 29 SECONDS (21-34) 11/10/17 07:56 Assessment and Plan - Assessment and Plan (Free Text) Assessment: ESRD ON HD T T S ANEMIA OF CKD .. H/H STABLE MMP P : C/O CURRENT MEDS C/O PRESENT MANAGEMENT
[2017-11-11] MEDS: Oxycodone/Acetaminophen 5/325 mg Tab PO PRN ×2 (09:54→22:54)
[2017-11-11] MEDS: Multivitamin Vitamin B Complex (Nephro-Vite) Tab PO SCH ×2 (10:52→11:13)
--- NOTE | 2017-11-11 11:18 | CP.PCM.PN ---
Subjective - Date & Time of Evaluation Date of Evaluation: 11/11/17 Time of Evaluation: 10:30 - Subjective Subjective: Vascular Surgery- Dr. Bardales Patient seen and examined at bedside this AM. No acute events overnight. nursing notes reviewed. Patient mentation baseline. Dressing C/D/I. Objective - Vital Signs/Intake and Output Vital Signs (last 24 hours): Temp Pulse Resp BP Pulse Ox 99.1 F 88 20 121/69 95 11/11/17 07:00 11/11/17 08:00 11/11/17 07:00 11/11/17 07:00 11/11/17 07:00 Intake and Output: 11/11/17 11/11/17 06:59 18:59 Intake Total 50 Balance 50 - Medications Medications: Current Medications Ascorbic Acid (Vitamin C 500 Mg Tab) 500 mg PO DAILY [facility] Last Admin: 11/11/17 09:54 Dose: 500 mg Aspirin (Ecotrin) 81 mg PO DAILY [facility] Last Admin: 11/09/17 10:06 Dose: 81 mg Atenolol (Tenormin) 50 mg PO DAILY [facility] Last Admin: 11/11/17 09:54 Dose: 50 mg Clopidogrel Bisulfate (Plavix) 75 mg PO DAILY [facility] Last Admin: 11/09/17 10:06 Dose: 75 mg Dextrose (Dextrose 50% Inj) 0 ml IV STAT PRN; Protocol PRN Reason: Hypoglycemia Protocol Dextrose (Glutose 15) 0 gm PO ONCE PRN; Protocol PRN Reason: Hypoglycemia Protocol Ergocalciferol (Drisdol 50,000 Intl Units Cap) 1 cap PO Q7D [facility] Last Admin: 11/05/17 19:47 Dose: Not Given Glucagon (Glucagen Diagnostic Kit) 0 mg IM STAT PRN; Protocol PRN Reason: Hypoglycemia Protocol Oxycodone/Acetaminophen (Percocet 5/325 Mg Tab) 1 tab PO Q6H PRN PRN Reason: Pain, moderate (4-7) Stop: 11/11/17 18:20 Last Admin: 11/11/17 09:54 Dose: 1 tab Vitamin B Complex/Vit C/Folic Acid (Nephro-Ramy) 1 tab PO 0800 [facility] Last Admin: 11/11/17 10:52 Dose: 1 tab - Labs Labs: 11/10/17 07:56 11/10/17 07:56 PT 12.5 SECONDS (9.7-12.2) H 11/10/17 07:56 INR 1.1 11/10/17 07:56 APTT 29 SECONDS (21-34) 11/10/17 07:56 - Constitutional Appears: Non-toxic, No Acute Distress - Head Exam Head Exam: ATRAUMATIC - ENT Exam ENT Exam: Mucous Membranes Moist - Respiratory Exam Respiratory Exam: NORMAL BREATHING PATTERN. absent: Accessory Muscle Use, Respiratory Distress - Cardiovascular Exam Cardiovascular Exam: +S1, +S2. absent: Bradycardia, Tachycardia - GI/Abdominal Exam GI & Abdominal Exam: Soft. absent: Firm, Guarding, Rigid, Tenderness - Extremities Exam Additional comments: RUE palpable thrill. Radial pulses palpable Dressing C/D/I - Neurological Exam Neurological Exam: Awake - Psychiatric Exam Psychiatric exam: Normal Affect - Skin Skin Exam: Intact, Warm Assessment and Plan - Assessment and Plan (Free Text) Assessment: 62M s/p superficialization of RUE AV fistula POD#1 Plan: - encourage RUE use - dressing can be changed tomorrow - cleared for discharge from a surgical standpoint - case discussed w/ Dr. Catia Bay PGY1
--- NOTE | 2017-11-11 13:29 | CP.PCM.PN ---
Subjective - Date & Time of Evaluation Date of Evaluation: 11/11/17 Time of Evaluation: 13:00 - Subjective Subjective: SEEN ON RRENAL F/U IN BED RESTING OFFERS NO NEW C/O ALL EMR REVIEWED LABS REVIEWED Objective - Vital Signs/Intake and Output Vital Signs (last 24 hours): Temp Pulse Resp BP Pulse Ox 99.1 F 96 H 20 121/69 95 11/11/17 07:00 11/11/17 12:08 11/11/17 07:00 11/11/17 07:00 11/11/17 07:00 Intake and Output: 11/11/17 11/11/17 06:59 18:59 Intake Total 50 Balance 50 - Medications Medications: Current Medications Ascorbic Acid (Vitamin C 500 Mg Tab) 500 mg PO DAILY [facility] Last Admin: 11/11/17 09:54 Dose: 500 mg Aspirin (Ecotrin) 81 mg PO DAILY [facility] Last Admin: 11/09/17 10:06 Dose: 81 mg Atenolol (Tenormin) 50 mg PO DAILY [facility] Last Admin: 11/11/17 09:54 Dose: 50 mg Clopidogrel Bisulfate (Plavix) 75 mg PO DAILY [facility] Last Admin: 11/09/17 10:06 Dose: 75 mg Dextrose (Dextrose 50% Inj) 0 ml IV STAT PRN; Protocol PRN Reason: Hypoglycemia Protocol Dextrose (Glutose 15) 0 gm PO ONCE PRN; Protocol PRN Reason: Hypoglycemia Protocol Ergocalciferol (Drisdol 50,000 Intl Units Cap) 1 cap PO Q7D [facility] Last Admin: 11/05/17 19:47 Dose: Not Given Glucagon (Glucagen Diagnostic Kit) 0 mg IM STAT PRN; Protocol PRN Reason: Hypoglycemia Protocol Oxycodone/Acetaminophen (Percocet 5/325 Mg Tab) 1 tab PO Q6H PRN PRN Reason: Pain, moderate (4-7) Stop: 11/11/17 18:20 Last Admin: 11/11/17 09:54 Dose: 1 tab Vitamin B Complex/Vit C/Folic Acid (Nephro-Ramy) 1 tab PO 0800 [facility] Last Admin: 11/11/17 10:52 Dose: 1 tab - Labs Labs: 11/10/17 07:56 11/10/17 07:56 PT 12.5 SECONDS (9.7-12.2) H 11/10/17 07:56 INR 1.1 11/10/17 07:56 APTT 29 SECONDS (21-34) 11/10/17 07:56 Assessment and Plan - Assessment and Plan (Free Text) Assessment: ESRD ON HD T T S .. TO BE C/O ANEMIA OF CKD .. H/H STABLE MMP P : C/O PRESENT CARE C/O CURRENT MEDS
--- NOTE | 2017-11-12 07:50 | PN ---
DATE: 11/11/2017 The patient has poor appetite , vomited today. subacute rehab. Christopher Polk MD [facility] # [id number]
[2017-11-12] MEDS: Multivitamin Vitamin B Complex (Nephro-Vite) Tab PO SCH (08:05)
--- NOTE | 2017-11-12 11:05 | CP.PCM.PN ---
Subjective - Date & Time of Evaluation Date of Evaluation: 11/12/17 Time of Evaluation: 08:00 - Subjective Subjective: PGY 2 Medicine Note- Dr. Polk's service Patient seen and examined in no apparent acute distress. He is refusing dialysis today. Patient denies any current chest pain, dyspnea, shortness of breath, nausea, vomiting, diarrhea or constipation at this time. Objective - Vital Signs/Intake and Output Vital Signs (last 24 hours): Temp Pulse Resp BP Pulse Ox 98.5 F 83 20 127/65 96 11/12/17 07:35 11/12/17 08:00 11/12/17 07:35 11/12/17 07:35 11/12/17 07:35 - Medications Medications: Current Medications Ascorbic Acid (Vitamin C 500 Mg Tab) 500 mg PO DAILY [facility] Last Admin: 11/12/17 10:13 Dose: 500 mg Aspirin (Ecotrin) 81 mg PO DAILY [facility] Last Admin: 11/09/17 10:06 Dose: 81 mg Atenolol (Tenormin) 50 mg PO DAILY [facility] Last Admin: 11/12/17 10:13 Dose: 50 mg Clopidogrel Bisulfate (Plavix) 75 mg PO DAILY [facility] Last Admin: 11/09/17 10:06 Dose: 75 mg Dextrose (Dextrose 50% Inj) 0 ml IV STAT PRN; Protocol PRN Reason: Hypoglycemia Protocol Dextrose (Glutose 15) 0 gm PO ONCE PRN; Protocol PRN Reason: Hypoglycemia Protocol Ergocalciferol (Drisdol 50,000 Intl Units Cap) 1 cap PO Q7D [facility] Last Admin: 11/05/17 19:47 Dose: Not Given Glucagon (Glucagen Diagnostic Kit) 0 mg IM STAT PRN; Protocol PRN Reason: Hypoglycemia Protocol Oxycodone/Acetaminophen (Percocet 5/325 Mg Tab) 1 tab PO Q6H PRN PRN Reason: Pain Stop: 11/14/17 22:49 Last Admin: 11/11/17 22:54 Dose: 1 tab Vitamin B Complex/Vit C/Folic Acid (Nephro-Ramy) 1 tab PO 0800 [facility] Last Admin: 11/12/17 08:05 Dose: 1 tab - Labs Labs: 11/10/17 07:56 11/10/17 07:56 PT 12.5 SECONDS (9.7-12.2) H 11/10/17 07:56 INR 1.1 11/10/17 07:56 APTT 29 SECONDS (21-34) 11/10/17 07:56 - Constitutional Appears: Non-toxic, No Acute Distress, Chronically Ill - Head Exam Head Exam: NORMAL INSPECTION - Eye Exam Eye Exam: EOMI - ENT Exam ENT Exam: Mucous Membranes Moist - Respiratory Exam Respiratory Exam: Clear to Ausculation Bilateral, NORMAL BREATHING PATTERN. absent: Respiratory Distress - Cardiovascular Exam Cardiovascular Exam: REGULAR RHYTHM, +S1, +S2 - GI/Abdominal Exam GI & Abdominal Exam: Normal Bowel Sounds - Extremities Exam Additional comments: b/l bka - Neurological Exam Neurological Exam: Alert, Awake - Psychiatric Exam Psychiatric exam: Normal Affect, Normal Mood Assessment and Plan - Assessment and Plan (Free Text) Assessment: ESRD on HD T//Thu - Patient is refusing dialysis today - Nephrology, Dr. Silver is consulted. Recommends vein mapping with vascular surgery - Dr. Iniguez consulted help appreciated - /p superficialization of RUE AV fistula POD#2 - Cleared for surgery from Dr. Polk from pulm perspective - Cardiology- Dr. Herrera cleared for AV fistula surgery with moderate cardiac risk , if benefits outweigh risk, patient may proceed with procedure - Surgery to perform procedure outpatient Recurrent Fall Admit to Telemetry Mechanical fall after leaning over CT HEAD (11/04/17): No evidence of acute infarct. Atrophy and moderate chronic periventricular/ deep/subcortical white matter ischemic change. Old lacunar infarcts jennifer, bilateral thalami, left internal capsule and left cerebellar hemisphere. CXR (11/05/17): NAD c-spine/thoracic xrays - minor wedge compression deformity of the t9/t10 vertebral bodies of indeterminate age AMS Ammonia 10 on 11/05 DM - Accuchecks ACHS - ISS - HgbA1c 5.7 - Will continue statin: crestor - hypoglycemia protoco-With Neuropathy- cont gabapentin Anemia -Likely of chronic disease -Etiology likely secondarily due to renal disease -Hgb stable HTN - Continue home medication: HOLD Atenolol 50 mg qd - Continue Aspirin and plavix. - Questionable History of CAD. Hypertriglyceridemia - Low HDL - Monitor Prophylaxis - Pepcid - Heparin D/C pending physical therapy recommendations. Patient is refusing PT so he can' t be placed in [facility]. Awaiting authorization. Was stable for DC today but the is not accepting the patient at home due to inability to care for him. Social work is on the case and now looking into alf care. They will contact the again. Patient is an unsafe discharge at this time. Case discussed with attending, Dr. Polk. All managements and orders per Dr. Polk
[2017-11-12] MEDS: Ergocalciferol 50,000 Intl Units Cap PO SCH (18:49)
[2017-11-12] MEDS: Oxycodone/Acetaminophen 5/325 mg Tab PO PRN (18:53)
--- NOTE | 2017-11-12 23:32 | CP.PCM.PN ---
Subjective - Date & Time of Evaluation Date of Evaluation: 11/12/17 Time of Evaluation: 14:00 - Subjective Subjective: SEEN ON RENAL F/U DAUGHTER ON THE BED SIDE PT REFUSED HD TODAY ,, STATING THAT HE WILL HAVE IT TOMORROW LUNCH TRAY ON THE BED SIDE .. PT HAS POOR APPETITE PT ADMITS TO BEING DEPRESSED S/P R ARM AVF REPAIR / SUPERFICIALIZATION OF AVF Objective - Vital Signs/Intake and Output Vital Signs (last 24 hours): Temp Pulse Resp BP Pulse Ox 99.1 F 83 20 144/73 96 11/12/17 15:00 11/12/17 15:43 11/12/17 15:00 11/12/17 15:00 11/12/17 15:00 Intake and Output: 11/12/17 11/13/17 18:59 06:59 Intake Total 600 150 Balance 600 150 - Medications Medications: Current Medications Ascorbic Acid (Vitamin C 500 Mg Tab) 500 mg PO DAILY [facility] Last Admin: 11/12/17 10:13 Dose: 500 mg Aspirin (Ecotrin) 81 mg PO DAILY [facility] Last Admin: 11/09/17 10:06 Dose: 81 mg Atenolol (Tenormin) 50 mg PO DAILY [facility] Last Admin: 11/12/17 10:13 Dose: 50 mg Clopidogrel Bisulfate (Plavix) 75 mg PO DAILY [facility] Last Admin: 11/09/17 10:06 Dose: 75 mg Dextrose (Dextrose 50% Inj) 0 ml IV STAT PRN; Protocol PRN Reason: Hypoglycemia Protocol Dextrose (Glutose 15) 0 gm PO ONCE PRN; Protocol PRN Reason: Hypoglycemia Protocol Ergocalciferol (Drisdol 50,000 Intl Units Cap) 1 cap PO Q7D [facility] Last Admin: 11/12/17 18:49 Dose: 1 cap Glucagon (Glucagen Diagnostic Kit) 0 mg IM STAT PRN; Protocol PRN Reason: Hypoglycemia Protocol Oxycodone/Acetaminophen (Percocet 5/325 Mg Tab) 1 tab PO Q6H PRN PRN Reason: Pain Stop: 11/14/17 22:49 Last Admin: 11/12/17 18:53 Dose: 1 tab Vitamin B Complex/Vit C/Folic Acid (Nephro-Ramy) 1 tab PO 0800 [facility] Last Admin: 11/12/17 08:05 Dose: 1 tab - Labs Labs: 11/10/17 07:56 11/10/17 07:56 PT 12.5 SECONDS (9.7-12.2) H 11/10/17 07:56 INR 1.1 11/10/17 07:56 APTT 29 SECONDS (21-34) 11/10/17 07:56 Assessment and Plan - Assessment and Plan (Free Text) Assessment: ESRD ON HD T T S .. REFUSED HD TODAY ANEMIA OF CKD .. H/H STABLE MMP P ; FOR HD IN AM C/O CURRENT CARE C/O PRESENT MEDS
[2017-11-13] MEDS: Multivitamin Vitamin B Complex (Nephro-Vite) Tab PO SCH (08:37)
[2017-11-13] MEDS: Oxycodone/Acetaminophen 5/325 mg Tab PO PRN (08:42)
[2017-11-13 10:05] LABS: BASO # 0.1 K/uL (0.0-0.2); BASO % 0.9 % (0.0-2.0); EOS # 0.5 K/uL (0.0-0.7); EOS % 5.3 % (0.0-4.0); LYMPH # 1.4 K/uL (1.0-4.3); LYMPH % 13.7 % (20.0-40.0); MEAN CELL VOLUME 88.4 fL (80.0-94.0); MEAN PLATELET VOLUME 7.5 fL (7.2-11.7); MONO # 0.8 K/uL (0.0-0.8); MONO % 8.3 % (0.0-10.0); NEUT # 7.2 K/uL (1.8-7.0); NEUT % 71.8 % (50.0-75.0); RBC 2.98 Mil/uL (4.40-5.90); RED CELL DISTRIBUTION WIDTH 14.8 % (11.5-14.5)
[2017-11-13 10:32] LABS: ALBUMIN 3.2 g/dL (3.5-5.0); CALCIUM 8.3 mg/dl (8.6-10.4)
--- NOTE | 2017-11-13 15:46 | CP.PCM.PN ---
Subjective - Date & Time of Evaluation Date of Evaluation: 11/13/17 Time of Evaluation: 11:00 - Subjective Subjective: PGY 2 Medicine Note- Dr. Polk's service Patient seen and examined in no acute distress. Patient's present bedside. Patient's states that she is power of civil litigation attorney and would like to be placed in [facility] care. Patient denies complaints at this time. Objective - Vital Signs/Intake and Output Vital Signs (last 24 hours): Temp Pulse Resp BP Pulse Ox 98.5 F 92 H 18 92/62 L 100 11/13/17 12:30 11/13/17 14:00 11/13/17 12:30 11/13/17 12:30 11/13/17 12:30 Intake and Output: 11/13/17 11/13/17 06:59 18:59 Intake Total 150 400 Balance 150 400 - Medications Medications: Current Medications Ascorbic Acid (Vitamin C 500 Mg Tab) 500 mg PO DAILY [facility] Last Admin: 11/13/17 13:21 Dose: 500 mg Aspirin (Ecotrin) 81 mg PO DAILY [facility] Last Admin: 11/13/17 13:59 Dose: 81 mg Atenolol (Tenormin) 50 mg PO DAILY [facility] Last Admin: 11/13/17 13:22 Dose: 50 mg Clopidogrel Bisulfate (Plavix) 75 mg PO DAILY [facility] Last Admin: 11/13/17 13:59 Dose: Not Given Dextrose (Dextrose 50% Inj) 0 ml IV STAT PRN; Protocol PRN Reason: Hypoglycemia Protocol Dextrose (Glutose 15) 0 gm PO ONCE PRN; Protocol PRN Reason: Hypoglycemia Protocol Ergocalciferol (Drisdol 50,000 Intl Units Cap) 1 cap PO Q7D [facility] Last Admin: 11/12/17 18:49 Dose: 1 cap Glucagon (Glucagen Diagnostic Kit) 0 mg IM STAT PRN; Protocol PRN Reason: Hypoglycemia Protocol Oxycodone/Acetaminophen (Percocet 5/325 Mg Tab) 1 tab PO Q6H PRN PRN Reason: Pain Stop: 11/14/17 22:49 Last Admin: 11/13/17 08:42 Dose: 1 tab Vitamin B Complex/Vit C/Folic Acid (Nephro-Ramy) 1 tab PO 0800 [facility] Last Admin: 11/13/17 08:37 Dose: 1 tab - Labs Labs: 11/13/17 10:03 11/13/17 10:03 PT 12.5 SECONDS (9.7-12.2) H 11/10/17 07:56 INR 1.1 11/10/17 07:56 APTT 29 SECONDS (21-34) 11/10/17 07:56 - Constitutional Appears: Non-toxic, No Acute Distress - Head Exam Head Exam: ATRAUMATIC - Eye Exam Eye Exam: EOMI, Normal appearance Pupil Exam: NORMAL ACCOMODATION - ENT Exam ENT Exam: Mucous Membranes Moist - Neck Exam Neck Exam: Full ROM - Respiratory Exam Respiratory Exam: NORMAL BREATHING PATTERN. absent: Wheezes - Cardiovascular Exam Cardiovascular Exam: +S1, +S2 - GI/Abdominal Exam GI & Abdominal Exam: Soft, Normal Bowel Sounds - Extremities Exam Extremities Exam: Normal Capillary Refill Additional comments: BKA noted - Back Exam Back Exam: Full ROM - Neurological Exam Neurological Exam: Alert, Awake, Oriented x3 - Psychiatric Exam Psychiatric exam: Normal Affect, Normal Mood - Skin Skin Exam: Dry, Normal Color, Warm Assessment and Plan - Assessment and Plan (Free Text) Assessment: SRD on HD T//Thu - Patient had dialysis today - Nephrology, Dr. Silver is consulted. - Dr. Iniguez consulted help appreciated - s/p superficialization of RUE AV fistula POD#3 Recurrent Fall Admit to Telemetry Mechanical fall after leaning over CT HEAD (11/04/17): No evidence of acute infarct. Atrophy and moderate chronic periventricular/ deep/subcortical white matter ischemic change. Old lacunar infarcts jennifer, bilateral thalami, left internal capsule and left cerebellar hemisphere. CXR (11/05/17): NAD c-spine/thoracic xrays - minor wedge compression deformity of the t9/t10 vertebral bodies of indeterminate age AMS Resolved Ammonia 10 on 11/05 DM - Accuchecks ACHS - ISS - HgbA1c 5.7 - Will continue statin: crestor - hypoglycemia protoco-With Neuropathy- cont gabapentin Anemia -Likely of chronic disease -Etiology likely secondarily due to renal disease -Hgb stable HTN - Continue home medication: HOLD Atenolol 50 mg qd - Continue Aspirin and plavix. - Questionable History of CAD. Hypertriglyceridemia - Low HDL - Monitor Prophylaxis - Pepcid - Heparin - Plavix, ASA D/C pending terminal supervisor care authorization attainment. needs to sign off on paperwork from nursing care facility beforehand. Case discussed with attending, Dr. Polk. All managements and orders per Dr. Polk
[2017-11-14] MEDS: Multivitamin Vitamin B Complex (Nephro-Vite) Tab PO SCH (09:06)
[2017-11-14] MEDS: Oxycodone/Acetaminophen 5/325 mg Tab PO PRN (15:46)
[2017-11-15] MEDS: Multivitamin Vitamin B Complex (Nephro-Vite) Tab PO SCH ×2 (08:22→08:25)
[2017-11-15] MEDS ORDERED: Oxycodone/Acetaminophen 5/325 mg Tab PO STA (16:34)
[2017-11-16] MEDS: Multivitamin Vitamin B Complex (Nephro-Vite) Tab PO SCH (08:31)
--- NOTE | 2017-11-16 08:53 | CP.PCM.PN ---
Subjective - Date & Time of Evaluation Date of Evaluation: 11/16/17 Time of Evaluation: 10:00 - Subjective Subjective: Progress Note for Dr. Polk Patient seen and examined at [facility]. No acute events reported overnight. Patient is resting in bed comfortably. Patient is aware of pending placement for [facility] long term care care. Patient does not have any current complaints. Objective - Vital Signs/Intake and Output Vital Signs (last 24 hours): Temp Pulse Resp BP Pulse Ox 97.9 F 89 18 132/67 100 11/16/17 07:35 11/16/17 08:00 11/16/17 07:35 11/16/17 07:35 11/16/17 07:35 Intake and Output: 11/16/17 11/16/17 06:59 18:59 Intake Total 118 Balance 118 - Medications Medications: Current Medications Ascorbic Acid (Vitamin C 500 Mg Tab) 500 mg PO DAILY [facility] Last Admin: 11/15/17 10:28 Dose: 500 mg Aspirin (Ecotrin) 81 mg PO DAILY [facility] Last Admin: 11/15/17 10:28 Dose: 81 mg Atenolol (Tenormin) 50 mg PO DAILY [facility] Last Admin: 11/15/17 10:28 Dose: 50 mg Clopidogrel Bisulfate (Plavix) 75 mg PO DAILY [facility] Last Admin: 11/15/17 10:28 Dose: 75 mg Dextrose (Dextrose 50% Inj) 0 ml IV STAT PRN; Protocol PRN Reason: Hypoglycemia Protocol Dextrose (Glutose 15) 0 gm PO ONCE PRN; Protocol PRN Reason: Hypoglycemia Protocol Ergocalciferol (Drisdol 50,000 Intl Units Cap) 1 cap PO Q7D [facility] Last Admin: 11/12/17 18:49 Dose: 1 cap Glucagon (Glucagen Diagnostic Kit) 0 mg IM STAT PRN; Protocol PRN Reason: Hypoglycemia Protocol Oxycodone/Acetaminophen (Percocet 5/325 Mg Tab) 1 tab PO Q6H PRN PRN Reason: Pain, moderate (4-7) Stop: 11/18/17 20:14 Vitamin B Complex/Vit C/Folic Acid (Nephro-Ramy) 1 tab PO 0800 [facility] Last Admin: 11/16/17 08:31 Dose: 1 tab - Labs Labs: 11/13/17 10:03 11/13/17 10:03 PT 12.5 SECONDS (9.7-12.2) H 11/10/17 07:56 INR 1.1 11/10/17 07:56 APTT 29 SECONDS (21-34) 11/10/17 07:56 - Additional Findings Additional findings: - Constitutional Appears: Non-toxic, No Acute Distress - Head Exam Head Exam: ATRAUMATIC - Eye Exam Eye Exam: EOMI, Normal appearance Pupil Exam: NORMAL ACCOMODATION - ENT Exam ENT Exam: Mucous Membranes Moist - Neck Exam Neck Exam: Full ROM - Respiratory Exam Respiratory Exam: NORMAL BREATHING PATTERN. absent: Wheezes - Cardiovascular Exam Cardiovascular Exam: +S1, +S2 - GI/Abdominal Exam GI & Abdominal Exam: Soft, Normal Bowel Sounds - Extremities Exam Extremities Exam: Normal Capillary Refill Additional comments: BKA noted - Back Exam Back Exam: Full ROM - Neurological Exam Neurological Exam: Alert, Awake, Oriented x3 - Psychiatric Exam Psychiatric exam: Normal Affect, Normal Mood - Skin Skin Exam: Dry, Normal Color, Warm Assessment and Plan - Assessment and Plan (Free Text) Assessment: ESRD on HD T//Thu - Nephrology, Dr. Silver is consulted. - Dr. Iniguez consulted help appreciated - s/p superficialization of RUE AV fistula POD#6 Recurrent Fall Admit to Telemetry Mechanical fall after leaning over CT HEAD (11/04/17): No evidence of acute infarct. Atrophy and moderate chronic periventricular/ deep/subcortical white matter ischemic change. Old lacunar infarcts jennifer, bilateral thalami, left internal capsule and left cerebellar hemisphere. CXR (11/05/17): NAD c-spine/thoracic xrays - minor wedge compression deformity of the t9/t10 vertebral bodies of indeterminate age AMS Resolved Ammonia 10 on 11/05 DM - Accuchecks ACHS - ISS - HgbA1c 5.7 - Will continue statin: crestor - hypoglycemia protoco-With Neuropathy- cont gabapentin Anemia -Likely of chronic disease -Etiology likely secondarily due to renal disease -Hgb stable HTN - Continue home medication: HOLD Atenolol 50 mg qd - Continue Aspirin and plavix. - Questionable History of CAD. Hypertriglyceridemia - Low HDL - Monitor Prophylaxis - Pepcid - Heparin - Plavix, ASA [facility]iary care authorized at [facility]. Patient is medically stable to be discharge. Case discussed with attending, Dr. Polk. All managements and orders per Dr. Polk
--- NOTE | 2017-11-16 09:11 | PN ---
DATE: 11/15/2017 The patient is lethargic. Supportive care, physical therapy. Christopher Polk MD
[2017-11-16] MEDS: Oxycodone/Acetaminophen 5/325 mg Tab PO PRN ×2 (10:21→18:03)
[2017-11-16 11:09] LABS: BASO # 0.1 K/uL (0.0-0.2); BASO % 0.6 % (0.0-2.0); EOS # 0.5 K/uL (0.0-0.7); EOS % 4.9 % (0.0-4.0); HEMOGLOBIN 9.5 g/dL (12.0-18.0); LYMPH # 1.3 K/uL (1.0-4.3); LYMPH % 12.9 % (20.0-40.0); MEAN CELL VOLUME 87.4 fL (80.0-94.0); MEAN CORPUSCULAR HEMOGLOBIN 30.8 pg (27.0-31.0); MEAN CORPUSCULAR HGB CONC 35.2 g/dL (33.0-37.0); MEAN PLATELET VOLUME 7.9 fL (7.2-11.7); MONO # 0.7 K/uL (0.0-0.8); MONO % 6.8 % (0.0-10.0); NEUT # 7.7 K/uL (1.8-7.0); NEUT % 74.8 % (50.0-75.0); RBC 3.09 Mil/uL (4.40-5.90); RED CELL DISTRIBUTION WIDTH 14.9 % (11.5-14.5); WHITE BLOOD COUNT 10.2 K/uL (4.8-10.8)
[2017-11-16 11:50] LABS: ALBUMIN 3.2 g/dL (3.5-5.0); CALCIUM 8.5 mg/dl (8.6-10.4)
[2017-11-16] MEDS ORDERED: Potassium Chloride 20 mEq ER Tab PO ONE (15:45)
[2017-11-16 16:23] VITALS: BP 147/72; PULSE 77; RESP 20; TEMP 97.7; O2SAT 97
--- NOTE | 2017-11-16 18:44 | CP.PCM.PN ---
Subjective - Date & Time of Evaluation Date of Evaluation: 11/16/17 Time of Evaluation: 15:00 - Subjective Subjective: ESRD ON HD M W F ANEMIA OF CKD ..H/H STABLE MMP P : C/O CURRENT CARE C/O PRESENT MEDS Objective - Vital Signs/Intake and Output Vital Signs (last 24 hours): Temp Pulse Resp BP Pulse Ox 97.7 F 77 20 147/72 97 11/16/17 15:00 11/16/17 15:00 11/16/17 15:00 11/16/17 15:00 11/16/17 15:00 Intake and Output: 11/16/17 11/16/17 06:59 18:59 Intake Total 118 500 Balance 118 500 - Medications Medications: Current Medications Ascorbic Acid (Vitamin C 500 Mg Tab) 500 mg PO DAILY [facility] Last Admin: 11/16/17 09:59 Dose: 500 mg Aspirin (Ecotrin) 81 mg PO DAILY [facility] Last Admin: 11/16/17 10:00 Dose: 81 mg Atenolol (Tenormin) 50 mg PO DAILY [facility] Last Admin: 11/16/17 09:59 Dose: 50 mg Clopidogrel Bisulfate (Plavix) 75 mg PO DAILY [facility] Last Admin: 11/16/17 09:59 Dose: 75 mg Dextrose (Dextrose 50% Inj) 0 ml IV STAT PRN; Protocol PRN Reason: Hypoglycemia Protocol Dextrose (Glutose 15) 0 gm PO ONCE PRN; Protocol PRN Reason: Hypoglycemia Protocol Ergocalciferol (Drisdol 50,000 Intl Units Cap) 1 cap PO Q7D [facility] Last Admin: 11/12/17 18:49 Dose: 1 cap Glucagon (Glucagen Diagnostic Kit) 0 mg IM STAT PRN; Protocol PRN Reason: Hypoglycemia Protocol Oxycodone/Acetaminophen (Percocet 5/325 Mg Tab) 1 tab PO Q6H PRN PRN Reason: Pain, moderate (4-7) Stop: 11/18/17 20:14 Last Admin: 11/16/17 18:03 Dose: 1 tab Vitamin B Complex/Vit C/Folic Acid (Nephro-Ramy) 1 tab PO 0800 [facility] Last Admin: 11/16/17 08:31 Dose: 1 tab - Labs Labs: 11/16/17 11:02 11/16/17 11:02 PT 12.5 SECONDS (9.7-12.2) H 11/10/17 07:56 INR 1.1 11/10/17 07:56 APTT 29 SECONDS (21-34) 11/10/17 07:56
--- NOTE | 2017-11-20 07:05 | DS ---
The patient was admitted to the hospital with chief complaint of weakness, fatigue, forgetfulness, confusion, altered mental status. The patient placed on bedrest, hemodialysis, physical therapy. The patient because of the weakness was provided with rehab. The patient is transferred to rehab service. Christopher Polk MD
--- NOTE | 2017-11-27 07:10 | OP ---
PROCEDURE DATE: 11/10/2017 PREOPERATIVE DIAGNOSIS: End-stage renal disease. POSTOPERATIVE DIAGNOSIS: End-stage renal disease. PROCEDURE: Superficialization of right brachiobasilic arteriovenous fistula. SURGEON: Chase Bardales MD COMPLICATIONS: No complication. INDICATIONS: Mr. 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 In addition, he has underwent right brachiocephalic AV fistula creation and fistula did well and the vessels had a good thrill, so we will obtain another month for superficialization of the fistula. Risks and benefits were explained to him and he agreed to proceed. DESCRIPTION OF PROCEDURE: The patient came to the operating room. He was lying in a supine position. He was prepped and draped in usual sterile fashion. General anesthesia was given for him. We started by feeling where the thrill and direction of the vein. Lidocaine 1% was used to infiltrate the skin. Incision was carried down over the proximal part of the fistula, came down subcutaneously, and we identified the fistula and dissected around with a vessel loop. We extended the incision over the fistula tract, cephalic and basilic vein under vision, by infiltrating the skin with lidocaine and incision continued along the fistula sites from the antecubital area up to almost the axillary area. Incision carried down to subcutaneous tissue down to the fascia along the line of incision. On the fascia, we started dissecting the fistula from the surrounding tissue and there were multiple tributaries and branches ligated to free the fistula. We freed the fistula from the proximal part of the up to the axillary vein and we felt that it is in good caliber. We irrigated the area with saline solution and hemostasis secured and filled in a closed fashion behind the fistula using 2-0 Vicryl. After closing the fascia, I released the skin from subcutaneous tissue to make the area where I can put the basilic vein under the skin superficialized or transpositioned under the skin to have a better chance to be seen and use , so I the skin and subcutaneous tissue and made this stay and I put the vein in C-shaped and fixed and placed using a couple of 6-0 Prolene suture to fix in place. After that, I irrigated the wound again and I closed subcutaneously using 3-0 Vicryl and subcuticularly with 4-0 Monocryl. No complication. The patient had a very good thrill after finishing the procedure. There was no complication, and he was transferred to the recovery room and after that he will go back to the floor. No complication during the procedure. Chase Bardales MD
== END 2017-11-16 19:53 | DRG 478 ==
LOC: C.ER 13:09 → C.6T 17:30 → C.9E 17:30 → UNDOADMOB 17:30 → C.9E 18:41 → C.6T 18:41 → UNDOADMOB 11-09 19:45 → C.6T 11-09 19:45 → OBSVTOIN 11-09 19:45 → INTOOBSV 11-10 00:15
PROVIDERS: ADMIT Internal Medicine Pulmonary Disease; ATTEND Internal Medicine Pulmonary Disease
PROC: 5A1D70Z Performance of Urinary Filtration, Intermittent, Less than 6 Hours Per Day (ICD-10-PCS; principal; 2017-11-05)
PROC: 5A1D70Z Performance of Urinary Filtration, Intermittent, Less than 6 Hours Per Day (ICD-10-PCS; 2017-11-07)
PROC: 03WY07Z Revision of Autologous Tissue Substitute in Upper Artery, Open Approach (ICD-10-PCS; 2017-11-10)
PROC: 5A1D70Z Performance of Urinary Filtration, Intermittent, Less than 6 Hours Per Day (ICD-10-PCS; 2017-11-10)
PROC: 5A1D70Z Performance of Urinary Filtration, Intermittent, Less than 6 Hours Per Day (ICD-10-PCS; 2017-11-13)
PROC: 5A1D70Z Performance of Urinary Filtration, Intermittent, Less than 6 Hours Per Day (ICD-10-PCS; 2017-11-14)
DX: I82.611 Acute embolism and thrombosis of superficial veins of right upper extremity (principal); I12.0 Hypertensive chronic kidney disease with stage 5 chronic kidney disease or end stage renal disease; E10.22 Type 1 diabetes mellitus with diabetic chronic kidney disease; T82.591A Other mechanical complication of surgically created arteriovenous shunt, initial encounter; N18.6 End stage renal disease; E10.649 Type 1 diabetes mellitus with hypoglycemia without coma; D63.1 Anemia in chronic kidney disease; D72.829 Elevated white blood cell count, unspecified; R62.7 Adult failure to thrive; M54.89 Other dorsalgia; W06.XXXA Fall from bed, initial encounter; E78.1 Pure hyperglyceridemia; E78.00 Pure hypercholesterolemia, unspecified; K21.9 Gastro-esophageal reflux disease without esophagitis; G89.29 Other chronic pain; F17.210 Nicotine dependence, cigarettes, uncomplicated; R29.6 Repeated falls; Y92.003 Bedroom of unspecified non-institutional (private) residence as the place of occurrence of the external cause; Z79.4 Long term (current) use of insulin; Z79.02 Long term (current) use of antithrombotics/antiplatelets; Z79.82 Long term (current) use of aspirin; Z89.511 Acquired absence of right leg below knee; Z91.15 Patient's noncompliance with renal dialysis; Z89.422 Acquired absence of other left toe(s); Z99.2 Dependence on renal dialysis